=== PATIENT | female | born 1965 | race Caucasian/White ===

== ENCOUNTER → 2016-05-14 08:46 | Outpatient (CLI) | payer MEDICAID ==
[2015-09-12 12:57] VITALS: BMI 41.1
[~2016-05-14 08:46] MED LIST: ADVAIR 250/501 DISK INH; ADVAIR HFA [SP]12 GM INH; CLARITIN 10 MG10 MG PO; CRESTOR10 MG PO; CYCLOBENZAPRINE10 MG PO; CYMBALTA30 MG PO; DIOVAN HCT 80/11 TAB PO; FLORAJEN3 CAPS460 MG PO; HUMALOG 30100 UNITS/ SC; HUMALOG MI100 UNITS/; IPRAT-ALBUT 0.5-3 ML UPD; K-TAB10 MEQ PO; KEFLEX500 MG PO; LANTUS INSULIN10 ML SC; LIORESAL 10 MG10 MG PO; LITHIUM CARBON300 MG PO; LYRICA75 MG PO; NEURONTIN600 MG PO; NEXIUM40 MG PO; NORCO 10/325 TA1 TA1 PO; OMNICEF300 MG PO; PRILOSEC20 MG PO; PROTONIX40 MG PO; PROVENTIL HFA6.7 GM INH; PROVENTIL/2.5 MG/3 M INH; ROBAXIN500 MG PO; TYLENOL #4 W/CO1 TAB PO; VENTOLIN HFA18 GM INH; WELLBUTRIN SR150 MG PO
== END | disposition home or self-care (01) ==
LOC: D.RAD 08:46
DX: R13.10 Dysphagia, unspecified (principal)

== ENCOUNTER 2016-08-30 01:14 | Inpatient (IN) | payer MEDICAID ==
[~2016-08-30] VITALS: Ht 162.6 cm; Wt 116.7 kg
[2016-08-30] VITALS (18 sets, daily range): BP systolic 100–139; BP diastolic 51–78; Ht 162.6 cm; Wt 116.7 kg
--- NOTE | ~2016-08-30 | EC ---
PATIENT:JIMMY ROMANO DATE OF SERVICE: 08/30/16 SEX: F MEDICAL RECORD: [id number] DATE OF : [birth year] LOCATION:[place] [address] AGE OF PATIENT: 51 ADMISSION DATE: 08/30/16 REFERRING PHYSICIAN: INTERPRETING PHYSICIAN: MELISSA CAMERON MD ECHOCARDIOGRAM REPORT ECHO CHARGES 4 ECHO COMPLETE CLINICAL DIAGNOSIS: CHF ECHOCARDIOGRAPHIC MEASUREMENTS (adult normal given) AC root (d.<3.7cm) 3.6 cm LV Septum d (<1.2 cm> 1.6 cm Valve Excursion 1.2 cm LV Septum (systole) 1.9 cm Left Atria (s.<4.0cm> 4.0 cm LVPW d(<1.2cm) 1.4 cm RV (d.<2.3cm) 2.7 cm LVPW (sytole) 1.6 cm LV diastole(<5.6CM) 5.1 cm MV E-F(>70mm/sec) cm LV systole 3.5 cm LVOT Diameter 1.5 cm MV exc.(>10mm) 1.6 cm Est.ejection fraction (50-75%) % Pericardial Effusion N DOPPLER: LVIT cm/sec A 104 cm/sec E 91.0 cm/sec LA cm/sec RVSP 40 mmHg LVOT 121 cm/sec AOP1/2T m/s Asc. Ao 186 cm/sec RVOT 102 cm/sec RA cm/sec PA 153 cm/sec AV Gradient Peak 13.87mmHg AV Mean 7.87 mmHg AV Area 1.5 cm MV Gradient Peak 7.36 mmHg MV Mean 1.85 mmHg MV Area cm COMMENTS: PA IS 9.41 IN [employer] Online Merchandising Manager: Bonnie MILLAN Chinese Medicine Practitioner: Bonnie Hay TAPE# PACS DATE OF SERVICE: 08/30/2016 Echocardiogram FINDINGS: 1. Left ventricular chamber size is within normal limits. Left ventricular systolic function is normal. Overall ejection fraction estimated at 60%. 2. Left atrium is upper limits of normal at 4.0 cm. Right atrium and right ventricular chamber sizes are as well upper limits of normal. 3. Valvular structures have normal structure and motion. ECHOCARDIOGRAM REPORT [id number] JIMMY ROMANO 4. Doppler interrogation reveals mild tricuspid regurgitation. No other valvular insufficiency or stenosis. Pulmonary systolic pressure is slightly elevated estimated at 40 mmHg. 5. No evidence of pericardial effusion or left ventricular thrombus. TRANSINT:[id number] Voice Confirmation ID: [id number] DOCUMENT ID: [id number] MELISSA CAMERON MD CC: [id number] DICTATION DATE: 08/31/16 1056 PROCESSING ENGINEER: 08/31/16 1124 ADM IN [facility] [address] [place] [address]
[2016-08-30 02:27] LABS: BASOPHILS 0.1 % (0-2); EOSINOPHILS 2.3 % (0-7); HEMATOCRIT 36.4 % (36.0-48.0); HEMOGLOBIN 11.7 g/dL (12-16); IMMATURE GRANULOCYTES 0.7 % (0-5); LYMPHOCYTES 19.1 % (15-50); MCH 28.7 pg (26.0-34.0); MCHC 32.1 g/dL (31.0-37.0); MCV 89.4 fL (80.0-100.0); MEAN PLATELET VOLUME 10.3 fL (7.4-10.4); NEUTROPHILS 70.8 % (40-80); PLATELET COUNT 271 10x3/uL (130-400); RBC 4.07 10x6/uL (4.00-5.40); RDW 14.4 % (11.5-14.5); WBC 13.7 10x3/uL (4.8-10.8)
[2016-08-30 02:35] LABS: ALBUMIN 3.4 g/dL (3.4-5.0); ALKALINE PHOSPHATASE 111 U/L (46-116); ALT (SGPT) 20 U/L (10-68); CARBON DIOXIDE 24.2 mmol/L (21.0-32.0); CHLORIDE - SERUM 96 mmol/L (98-107); CREATININE - SERUM 5.7 mg/dL (0.6-1.3); POTASSIUM - SERUM 3.6 mmol/L (3.5-5.1); PROTEIN - SERUM 7.6 g/dL (6.4-8.2); SODIUM 132 mmol/L (136-145); UREA NITROGEN 53 mg/dL (7-18); eGFR NON AFRICAN AMERICAN 8 mL/min (90-120)
[2016-08-30 02:51] LABS: CKMB 13.3 U/L (0.0-3.6)
[2016-08-30 02:53] LABS: CALC OSMOLALITY 276 mosm/kg (275-300); CREATINE KINASE 2283 UL (21-215); GLUCOSE 59 mg/dL (74-106)
[2016-08-30 02:54] LABS: TROPONIN-I 0.243 ng/mL (0.000-0.060)
[2016-08-30 04:05] LABS: COLOR YELLOW (YELLOW)
[2016-08-30 04:06] LABS: APPEARANCE CLOUDY (CLEAR); BACTERIA MANY /hpf (NONE SEEN); BILIRUBIN NEGATIVE (NEGATIVE); EPITHELIAL CELLS 0-5 /hpf (0-5); GLUCOSE NEGATIVE (NEGATIVE); KETONE NEGATIVE (NEGATIVE); LEUKOCYTE ESTERASE 1+ (NEGATIVE); NITRITE NEGATIVE (NEGATIVE); PROTEIN 1+ mg/dL (NEGATIVE); RED CELLS - URINE 0-5 /hpf (0-5); SPECIFIC GRAVITY 1.005 (1.005-1.020); UROBILINOGEN NORMAL (NORMAL)
--- NOTE | 2016-08-30 06:30 | NUR ---
PT ARRIVED TO THE UNIT WITH ER STAFF HOOKED TO THEIR MONITOR. PT MOVED TO ICU BED AND HOOKED TO ICU MONITORS. PT INITIAL VIATLS SIGNS RECORDED. WILL CONTINUE TO MONITOR.
--- NOTE | 2016-08-30 07:00 | NUR ---
PT REPORT REC'D, PT CARE ASSUMED, PT RESTING WITH EYES CLOSED, VSS, 2LNC. LEFT HAND PIV WITH NS INFUSING AT 200 CC/HR, NO REDNESS, WARMTH OR SIGNS OF INFILTRATION. RIGHT HAND PIV S/L'ED, NO REDNESS, WARMTH OR SIGNS OF INFILTRATION. LOPEZ CATHETER FREE OF KINKS TO GRAVITY WITH CLOUDY YELLOW URINE RETURN. NO FAMILY AT THE BEDSIDE, PT UNABLE TO ANSWER QUESTIONS. SHIFT ASSESSMENT COMPLETED, SEE ADMISSION SHIFT ASSESSMENT. ROOM FREE OF CLUTTER, CALL LIGHT IN REACH, BED ALARM ACTIVE, CLOSE TO NURSES STATION, WILL CONTINUE TO MONITOR PT.
[2016-08-30 09:04] LABS: CKMB 18.5 U/L (0.0-3.6)
[2016-08-30 09:26] LABS: CREATINE KINASE 2141 UL (21-215); TROPONIN-I 0.213 ng/mL (0.000-0.060)
--- NOTE | 2016-08-30 09:32 | NUR ---
PTS DAUGHTER, LUIS ENRIQUE ROSS AT THE BEDSIDE, STATES PT "LIVES WITH HER BOYFRIEND, JUSTINE, THEY'VE BEEN TOGETHER FOR 9 YEARS. IT'S JUST MY SISTER AND I, I'M THE OLDEST. IF ANYTHING HAPPENS TO MY MOTHER, I WOULD LIKE EVERYTHING TO BE DONE PLEASE. STATES PT SMOKES APPROX 1PACK A DAY FOR THE LAST 18 YEARS, PT RARELY DRINKS, ONCE IN A BLUE SMITH SHE MAY HAVE DRINK. SHE EXPERIENCED SOME RIGHT SIDED WEAKNESS YESTERDAY AND SAID SHE WASN'T FEELING RIGHT. THE DAY BEFORE YESTERDAY SHE WAS COLD AND CLAMMY, SHE SAID SHE TRIED TO CALL HER DR'S OFFICE SO THAT SHE COULD GET AN APPT SCHEDULED." ASHLEY MATHIS AT THE BEDSIDE, ALL QUESTIONS ANSWERED, VSS, WILL CONTINUE TO MONITOR PT.
--- NOTE | 2016-08-30 09:53 | NUR ---
RETURNED PAGE, INFORMED OF CONSULT FOR CVL PLACEMENT. "OKAY I'LL BE THERE IN A BIT."
--- NOTE | 2016-08-30 10:11 | NUR ---
PAGED DR. ENGLISH PER CONSULT, AWAITING CALL BACK.
--- NOTE | 2016-08-30 10:53 | NUR ---
PT FAMILY AT THE BEDSIDE, ALL QUESTIONS ANSWERED,VSS, WILL CONITNUE TO MONITOR PT.
--- NOTE | 2016-08-30 10:54 | NUR ---
ON THE UNIT, INFORMED OF CONSULT.
--- NOTE | 2016-08-30 11:00 | NUR ---
PT RESTING WITH EYES CLOSED, VSS, REASSESSMENT COMPLETED, SEE FLOW SHEET. ROOM FREE OF CLUTTER, BED LOCKED IN LOWEST POSIITON, BED ALARM ACTIVE, WILL CONTINUE TO MONITOR PT.
--- NOTE | 2016-08-30 11:23 | NUR ---
DR. ENGLISH, DR. ISIDRO AND DR. HA AT THE BEDSIDE SPEAKING WITH PTS BOYFRIEND, JUSTINE.
--- NOTE | 2016-08-30 11:32 | NUR ---
PT REQUESTING THAT WE "GET HIM WHEN THE DOCTORS ARE IN."
[2016-08-30 14:44] LABS: BASOPHILS 0.1 % (0-2); EOSINOPHILS 1.9 % (0-7); HEMATOCRIT 33.7 % (36.0-48.0); IMMATURE GRANULOCYTES 0.6 % (0-5); LYMPHOCYTES 12.4 % (15-50); MCH 29.2 pg (26.0-34.0); MCHC 32.6 g/dL (31.0-37.0); MCV 89.4 fL (80.0-100.0); MEAN PLATELET VOLUME 10.8 fL (7.4-10.4); MONOCYTES 6.8 % (2-11); NEUTROPHILS 78.2 % (40-80); PLATELET COUNT 261 10x3/uL (130-400); RBC 3.77 10x6/uL (4.00-5.40); RDW 14.5 % (11.5-14.5); WBC 14.3 10x3/uL (4.8-10.8)
--- NOTE | 2016-08-30 15:00 | NUR ---
PT RESTING WITH EYES CLOSED, NO C/O PAIN, VSS. PT OPENS EYES TO VOICE, KNOWS WHERE SHE IS AND THE YEAR, DOESN'T REMEMBER WHAT HAPPENED THAT BROUGHT HER IN. REASSESSMENT COMPLETED, SEE FLOW SHEET. ROOM FREE OF CLUTTER, CALL LIGHT IN REACH, BED LOCKED IN LOWEST POSITION, BED ALARM ACTIVE, WILL CONTINUE TO MONITOR PT.
[2016-08-30 15:11] LABS: HEMOGLOBIN A1C 8.5 % (4.8-6.0)
[2016-08-30 15:30] LABS: ALKALINE PHOSPHATASE 113 U/L (46-116); ALT (SGPT) 20 U/L (10-68); BILIRUBIN - DIRECT 0.07 mg/dL (0.00-0.30); BILIRUBIN - INDIRECT 0.16 mg/dL (0.00-1.00); BILIRUBIN - TOTAL 0.23 mg/dL (0.2-1.3); CALCIUM 8.7 mg/dL (8.5-10.1); CHLORIDE - SERUM 99 mmol/L (98-107); CREATININE - SERUM 4.4 mg/dL (0.6-1.3); MAGNESIUM - SERUM 2.5 mg/dL (1.8-2.4); PHOSPHOROUS 6.2 mg/dL (2.5-4.9); PROTEIN - SERUM 6.6 g/dL (6.4-8.2); SODIUM 133 mmol/L (136-145); UREA NITROGEN 48 mg/dL (7-18); eGFR NON AFRICAN AMERICAN 11 mL/min (90-120)
[2016-08-30 15:34] LABS: CALC OSMOLALITY 283 mosm/kg (275-300); GLUCOSE 185 mg/dL (74-106); POTASSIUM - SERUM 4.7 mmol/L (3.5-5.1)
[2016-08-30 15:35] LABS: CREATINE KINASE 1936 UL (21-215)
[2016-08-30 15:37] LABS: TROPONIN-I 0.184 ng/mL (0.000-0.060)
--- NOTE | 2016-08-30 15:55 | NUR ---
AT THE BEDSIDE FOR CVL PLACEMENT.
--- NOTE | 2016-08-30 18:00 | NUR ---
PT FAMILY AT THE BEDSIDE, ALL QUESTIONS ANSWERED, VSS, WILL CONTINUE TO MONITOR PT.
--- NOTE | 2016-08-30 19:00 | NUR ---
REPORT REC'D. ASSUMED PT'S CARE. ASSESSMENT COMPLETED. SEE FLOW SHEETS FOR ALL FINDINGS. PT ON BIPAP, AROUSE WITH VOICES, FOLLOW COMMANDS. ST ON CM WITH HR TO 102, LUNG SOUNDS CRACKLES TO ULB WITH DIMINISHED TO LLB, UNLABORED. O2SAT 96% ON FIO2 AT 35%. LEFT IJ CVL INTACT, CLEAN AND DRY, INFUSING D51/2NS AT 150ML/HR VIA PUMP. LOPEZ INTACT BY GRAVITY WITH YELLOW DRAINAGE TO BAG, PPP. CALL LIGHT IN REACH, BED IN LOW POSITIONED AND LOCKED. HOB UP, SIDE RAILS UP. WILL CONT TO MONITOR,
[2016-08-30 20:47] LABS: CKMB 10.4 U/L (0.0-3.6)
[2016-08-30 20:49] LABS: CREATINE KINASE 1433 UL (21-215)
[2016-08-30 20:50] LABS: TROPONIN-I 0.146 ng/mL (0.000-0.060)
--- NOTE | 2016-08-30 21:00 | NUR ---
PT'S BOYFRIEND AT BEDSIDE VISITING. UPDATED AND QUESTIONS ANSWERED.
--- NOTE | 2016-08-30 23:00 | NUR ---
REASSESSMENT COMPLETED. SEE FLOW SHEETS FOR ALL FINDINGS. CONT PT ON BIPAP, AROUSES EASILY WITH VOICE. NO SIGNS OF DISTRESS NOTED, VSS, NO NEEDS VOICES AT THIS TIME, CALL LIGHT IN REACH. CPOC,
[2016-08-31] VITALS (26 sets, daily range): BP systolic 104–160; BP diastolic 58–83
--- NOTE | 2016-08-31 01:00 | NUR ---
PT RESTING QUIELTY WITHOUT DISTRESS. VSS. NO NEEDS VOICES AT THIS TIME. CALL LIGHT IN REACH. WILL CONT TO MONITOR.
--- NOTE | 2016-08-31 03:00 | NUR ---
REASSESSNENT COMPLETED PER FLOW SHEETS. NO ACUTE CHANGES NOTED ON PT'S CONDITION AT THIS TIME, VSS. CALL LIGHT IN REACH. CPOC,
--- NOTE | 2016-08-31 04:30 | NUR ---
BELONGINGS FORM SIGNED BY PT - AGREES THERE WAS NO MONEY IN WALLET. REFUSES TO SEND TO LOCK UP - IN BELONGS BAG IN ROOM.
[2016-08-31 04:58] LABS: BASOPHILS 0.2 % (0-2); EOSINOPHILS 2.1 % (0-7); HEMATOCRIT 33.8 % (36.0-48.0); HEMOGLOBIN 11.1 g/dL (12-16); IMMATURE GRANULOCYTES 0.5 % (0-5); LYMPHOCYTES 10.6 % (15-50); MCH 29.8 pg (26.0-34.0); MCHC 32.8 g/dL (31.0-37.0); MCV 90.6 fL (80.0-100.0); MEAN PLATELET VOLUME 10.8 fL (7.4-10.4); MONOCYTES 6.7 % (2-11); NEUTROPHILS 79.9 % (40-80); PLATELET COUNT 280 10x3/uL (130-400); RBC 3.73 10x6/uL (4.00-5.40); RDW 14.2 % (11.5-14.5); WBC 13.2 10x3/uL (4.8-10.8)
--- NOTE | 2016-08-31 05:00 | NUR ---
PT RESTING WIOUT DISTRESS. VSS. NO NEEDS VOICES. CPOC.
[2016-08-31 05:48] LABS: ALBUMIN 2.6 g/dL (3.4-5.0); ALKALINE PHOSPHATASE 105 U/L (46-116); ALT (SGPT) 16 U/L (10-68); CALCIUM 9.3 mg/dL (8.5-10.1); CARBON DIOXIDE 23.8 mmol/L (21.0-32.0); CHLORIDE - SERUM 101 mmol/L (98-107); MAGNESIUM - SERUM 2.1 mg/dL (1.8-2.4); POTASSIUM - SERUM 4.7 mmol/L (3.5-5.1); PROTEIN - SERUM 6.7 g/dL (6.4-8.2); SODIUM 133 mmol/L (136-145); UREA NITROGEN 38 mg/dL (7-18)
[2016-08-31 05:49] LABS: CALC OSMOLALITY 284 mosm/kg (275-300); CKMB 7.3 U/L (0.0-3.6); CREATINE KINASE 1196 UL (21-215); CREATININE - SERUM 2.7 mg/dL (0.6-1.3); GLUCOSE 281 mg/dL (74-106); PHOSPHOROUS 4.3 mg/dL (2.5-4.9); TROPONIN-I 0.115 ng/mL (0.000-0.060); eGFR NON AFRICAN AMERICAN 20 mL/min (90-120)
--- NOTE | 2016-08-31 10:15 | NUR ---
Nutrition follow-up: Pt remains NPO Labs reviewed Will need to consider nutrition support if diet unable to advance within 24-[address]N following.
--- NOTE | 2016-08-31 13:47 | NUR ---
ASSISTED PT TO BSC FOR BM. PT SAT UP FOR APPROX 10 MIN AND ASSISTED BACK TO BED . BATH AND LINEN CHANGE DONE.
--- NOTE | 2016-08-31 15:54 | NUR ---
FSBS 451, SS USED, REPORTED TO DR ISIDRO AND REC'D NEW ORDERS.
--- NOTE | 2016-08-31 19:35 | NUR ---
REPORT RECIEVED, INITIAL ASSESSMENT COMPLETE, PLEASE SEE FLOW SHEETS FOR DETAILS. SITTING UP IN BED, A&O X4, RECIEVING RT TREATMENT ATT. FOLLOWS COMMANDS. DENIES PAIN/NEEDS ATT. LUNGS DIMINISHED IN LOWER LOBES. BS ACTIVE X4 QUAD. S1S2 AUSCULTATED. PPP. VSS, BED LOW AND LOCKED, CALL LIGHT IN REACH. ACORDING TO REPORT PT AND GETUP AND WALK WITH LITTLE TO NO ASSISTANCE, LOPEZ IN PLACE AND PT AWARE SHE NEEDS TO USE CALL LIGHT IN GET UP. WILL CPOC.
--- NOTE | 2016-08-31 21:00 | NUR ---
RESTING, FAMILY AT BEDSIDE, DENIES PAIN/NEEDS ATT. BED LOW AND LOCKED, CALL LIGHT IN REACH. WILL CPOC.
--- NOTE | 2016-08-31 21:59 | NUR ---
PAGED DR MARTIN BECAUSE PATIENT HAS PAIN 8/10 IN ARMS AND NO PAIN MEDS ORDERED.
--- NOTE | 2016-08-31 22:12 | NUR ---
SPOKE TO DR MARTIN, HE SAID TO RESTART HER HOME TYLENOL #4 AND LET HER HAVE IT [id number].
--- NOTE | 2016-08-31 22:55 | NUR ---
REASSESSMENT COMPLETE, PLEASE SEE FLOW SHEETS FOR DETAILS. DENIES NEEDS ATT, PAIN PILL GIVEN, WILL RE-EVALUATE. VSS, BED LOW AND LOCKED, CALL LIGHT IN REACH. WILL CPOC.
[2016-09-01] VITALS (12 sets, daily range): BP systolic 141–189; BP diastolic 66–99
--- NOTE | 2016-09-01 01:25 | NUR ---
RESTING, NO S&S OF ACUTE DISTRESS NOTED. BED LOW AND LOCKED, CALL LIGHT IN REACH. VSS, WILL CPOC.
--- NOTE | 2016-09-01 03:00 | NUR ---
REASSESSMENT COMPLETE, PLEASE SEE FLOW SHEETS FOR DETAILS. DENIES PAIN/NEEDS ATT. BED LOW AND LOCKED, CALL LIGHT IN REACH. VSS, WILL CPOC.
--- NOTE | 2016-09-01 05:00 | NUR ---
LOPEZ CARE PROVIDED, DENIES PAIN/NEEDS ATT. BED LOW AND LOCKED, CALL LIGHT IN REACH. WILL CPOC.
[2016-09-01 05:51] LABS: BASOPHILS 0.2 % (0-2); EOSINOPHILS 3.3 % (0-7); HEMATOCRIT 33.4 % (36.0-48.0); HEMOGLOBIN 10.9 g/dL (12-16); IMMATURE GRANULOCYTES 0.3 % (0-5); LYMPHOCYTES 18.2 % (15-50); MCHC 32.6 g/dL (31.0-37.0); MCV 88.8 fL (80.0-100.0); MEAN PLATELET VOLUME 10.6 fL (7.4-10.4); MONOCYTES 6.7 % (2-11); NEUTROPHILS 71.3 % (40-80); PLATELET COUNT 301 10x3/uL (130-400); RBC 3.76 10x6/uL (4.00-5.40); WBC 11.7 10x3/uL (4.8-10.8)
[2016-09-01 06:02] LABS: ANION GAP 13.4 mmol/L (8-16); CALCIUM 9.5 mg/dL (8.5-10.1); CARBON DIOXIDE 23.8 mmol/L (21.0-32.0); POTASSIUM - SERUM 4.2 mmol/L (3.5-5.1)
[2016-09-01 06:03] LABS: CREATININE - SERUM 1.5 mg/dL (0.6-1.3)
--- NOTE | 2016-09-01 07:57 | NUR ---
UP TO BSC WITH ASSISTANCE
--- NOTE | 2016-09-01 11:58 | NUR ---
CALLING REPORT TO FLOOR NURSE
--- NOTE | 2016-09-01 12:00 | NUR ---
WILL ATTEMPT TO CALL REPORT AT A LATER TIME
--- NOTE | 2016-09-01 12:57 | NUR ---
ATTEMPTING TO CALL REPORT TO FLOOR NURSE
--- NOTE | 2016-09-01 13:01 | NUR ---
ROPORT GIVEN TO FLOOR NURSE
--- NOTE | 2016-09-01 13:30 | NUR ---
RECIVED FROM ICU PER BED. TO ROOM 2127.
--- NOTE | 2016-09-01 17:12 | NUR ---
WITHOUT CHANGES OR DISTRESS NOTED AT THIS TIME. DENIES NEEDS.
--- NOTE | 2016-09-01 19:33 | NUR ---
INITIAL ROUNDS COMPLETED. PT AWAKW; DENIES ANY DISCOMFORT. WILL CONTINUE TO MONITOR.
--- NOTE | 2016-09-01 22:58 | NUR ---
PT AWAWK; STATES BACK PAIN EASING. WILL CONTINUE TO MONITOR.
--- NOTE | 2016-09-02 00:49 | NUR ---
PT RESTING WITH EYES CLOSED. RESP EVEN AND REGULAR. BIPAP IN USE. WILL CONTINUE TO MONITOR. SR UP X2, CALL LIGHT WITHIN REACH.
[2016-09-02 02:18] VITALS: BP 164/82
--- NOTE | 2016-09-02 02:40 | NUR ---
PT RESTING WITH EYES CLOSED. RESP EVEN AND REGULAR. SR UP X2,CALL LIGHT WITHIN REACH. BIPAP IN USE.
[2016-09-02 05:00] VITALS: BP 176/73
[2016-09-02 06:18] LABS: BASOPHILS 0.3 % (0-2); EOSINOPHILS 4.1 % (0-7); HEMOGLOBIN 10.7 g/dL (12-16); IMMATURE GRANULOCYTES 0.5 % (0-5); MCH 28.5 pg (26.0-34.0); MCHC 32.4 g/dL (31.0-37.0); MCV 87.8 fL (80.0-100.0); MEAN PLATELET VOLUME 10.7 fL (7.4-10.4); MONOCYTES 8.1 % (2-11); PLATELET COUNT 298 10x3/uL (130-400); RBC 3.76 10x6/uL (4.00-5.40); RDW 13.9 % (11.5-14.5); WBC 11.6 10x3/uL (4.8-10.8)
--- NOTE | 2016-09-02 06:48 | NUR ---
VSS THROUGHOTU NIGHT. SR PER CM. PT STATED TYLENOL #3 HELPED BACK PAIN. AM FSBS 253. 16 U NITS HUMALOG GIVEN SUB-Q TO UPPER L ARM. NEEDS MET;WILL CONTINUE TO MONITOR.
[2016-09-02 07:07] LABS: CALCIUM 8.9 mg/dL (8.5-10.1); CARBON DIOXIDE 25.5 mmol/L (21.0-32.0); CHLORIDE - SERUM 100 mmol/L (98-107); CREATINE KINASE 294 UL (21-215); CREATININE - SERUM 1.3 mg/dL (0.6-1.3); POTASSIUM - SERUM 3.7 mmol/L (3.5-5.1); SODIUM 133 mmol/L (136-145); eGFR NON AFRICAN AMERICAN 46 mL/min (90-120)
[2016-09-02 07:10] LABS: CALC OSMOLALITY 276 mosm/kg (275-300); GLUCOSE 271 mg/dL (74-106); UREA NITROGEN 14 mg/dL (7-18)
[2016-09-02 07:11] LABS: CKMB 2.5 U/L (0.0-3.6)
--- NOTE | 2016-09-02 08:01 | NUR ---
ASSESSMENT DONE. DENIES NEEDS AT THIS TIME.
[2016-09-02 08:16] VITALS: BP 178/88
--- NOTE | 2016-09-02 09:24 | NUR ---
IV PATENT. AT BS. CALL LIGHT IN REACH. WILL CONT. PLAN OF CARE.
[2016-09-02 11:59] VITALS: BP 161/75
[2016-09-02] MEDS ORDERED: COREG12.5 MG PO (15:32)
[2016-09-02] MEDS ORDERED: LEVAQUIN500 MG PO (15:38)
[2016-09-02 16:05] VITALS: BP 139/73
--- NOTE | 2016-09-02 16:58 | NUR ---
DC GIVEN TO PT
--- NOTE | 2016-09-02 17:04 | NUR ---
DC HOME PER PERSONAL CAR
[2016-09-04 15:21] LABS: ALP - ISO (ALP) 107 IU/L (39-117); ALP - ISO (BONE) FRACTION 30 % (14-68); ALP - ISO (LIVER) FRACTION 70 % (18-85); ALP - ISO(INTESTINAL) FRACTION 0 % (0-18)
== END 2016-09-02 17:05 | disposition home or self-care (01) | DRG 177 ==
LOC: D.ER 01:14 → D.ICU 05:04 → D.M2 09-01 13:02
PROVIDERS: Emergency Medicine; Family Medicine; ADMIT Family Medicine
PROC: 02HV33Z Insertion of Infusion Device into Superior Vena Cava, Percutaneous Approach (ICD-10-PCS; principal; 2016-08-30)
PROC: B548ZZA Ultrasonography of Superior Vena Cava, Guidance (ICD-10-PCS; 2016-08-30)
PROC: 0T9B70Z Drainage of Bladder with Drainage Device, Via Natural or Artificial Opening (ICD-10-PCS; 2016-08-30)
PROC: 5A09457 Assistance with Respiratory Ventilation, 24-96 Consecutive Hours, Continuous Positive Airway Pressure (ICD-10-PCS; 2016-08-30)
DX: J69.0 Pneumonitis due to inhalation of food and vomit (principal); J96.02 Acute respiratory failure with hypercapnia; J96.01 Acute respiratory failure with hypoxia; N17.0 Acute kidney failure with tubular necrosis; G93.41 Metabolic encephalopathy; N39.0 Urinary tract infection, site not specified; E87.2 Acidosis; J98.11 Atelectasis; J44.1 Chronic obstructive pulmonary disease with (acute) exacerbation; M62.82 Rhabdomyolysis; B96.89 Other specified bacterial agents as the cause of diseases classified elsewhere; E78.5 Hyperlipidemia, unspecified; E11.649 Type 2 diabetes mellitus with hypoglycemia without coma; E11.40 Type 2 diabetes mellitus with diabetic neuropathy, unspecified; E11.22 Type 2 diabetes mellitus with diabetic chronic kidney disease; I12.9 Hypertensive chronic kidney disease with stage 1 through stage 4 chronic kidney disease, or unspecified chronic kidney disease; N18.9 Chronic kidney disease, unspecified; Z79.4 Long term (current) use of insulin; G47.33 Obstructive sleep apnea (adult) (pediatric); I95.9 Hypotension, unspecified; K21.9 Gastro-esophageal reflux disease without esophagitis; F31.9 Bipolar disorder, unspecified; F60.9 Personality disorder, unspecified; F41.9 Anxiety disorder, unspecified; Z72.0 Tobacco use

== ENCOUNTER → 2016-11-23 10:17 | Outpatient (CLI) | payer MEDICAID ==
[2016-08-30 10:30] VITALS: BMI 43.1
[~2016-11-23 10:17] MED LIST changes: +COREG12.5 MG PO; +LEVAQUIN500 MG PO
== END | disposition home or self-care (01) ==
LOC: D.US 10:17
DX: I12.9 Hypertensive chronic kidney disease with stage 1 through stage 4 chronic kidney disease, or unspecified chronic kidney disease (principal); E11.22 Type 2 diabetes mellitus with diabetic chronic kidney disease; Z68.41 Body mass index [BMI] 40.0-44.9, adult

== ENCOUNTER 2017-05-23 15:48 | Inpatient (IN) | payer MEDICAID ==
[~2017-05-23] VITALS: Ht 162.6 cm; Wt 106.0 kg
--- NOTE | ~2017-05-23 | HEMODYNAMI ---
PATIENT:JIMMY ROMANO MEDICAL RECORD: [id number] : 65 LOCATION:[facility] D.2302 ADMISSION DATE: 05/23/17 Generatedon:05/27/201712:17 Patient name: JIMMY ROMANO Patient #: [id number] SSN: : 1965 Date of study: 05/27/2017 Page: Of Hemodynamic Procedure Report Patient Data Patient Demographics Procedure consent was obtained First Name: JIMMY Gender: Female Last Name: ROMANO : 1965 [facility] Initial: KAYCEE Age: 52 year(s) Patient #: [id number] Race: Unknown Additional ID: [id number] Contact details Address: [address] [place] [address] [address] State: [place] City: [place] Zip code: [address] Past Medical History Allergies Allergen Reaction Date Comments Reported Other allergy 05/27/2017 Admission Admission Data Admission Date: 05/23/2017 Admission Time: 17:55 Room #: 2302 Height (in.): 64 BSA: 2.06 (m2) Height (cm.): 162.56 BMI: 38.6 (kg/m2) Weight (lbs.): 224.87 Weight (kg.): 102 Procedure Procedure Types Cath Procedure Diagnostic Procedure LHC LH w/Coronaries PCI Procedure Coronary Stent Coronary Stent Initial Procedure Description Procedure Date Procedure Date: 05/27/2017 Procedure Start Time: 11:59 Procedure End Time: 12:12 Procedure Staff Name Function Jan Kendrick MD Performing Physician Jenni Witt RT Monitor Autumn Hobbs RT Scrub Shama Garrett RN Nurse Procedure Data Cath Procedure Fluoroscopy Diagnostic fluoroscopy Total fluoroscopy Time: 2.6 time: 2.6 min min Diagnostic fluoroscopy Total fluoroscopy dose: 2.6 dose: 2.6 mGy mGy Contrast Material Contrast Material Type Amount (ml) Isovue 300 76 Entry Location Entry Primary Successful Side Size Upsize Upsize Entry Closure Succes sful Closure Location (Fr) 1 (Fr) 2 (Fr) Remarks Device Remarks Femoral Right 5 Fr 6 Fr Exoseal artery Short Estimated blood loss: 10 ml Diagnostic catheters Device Type Used For End Catheter Placement MULTIPACK Pigtail 5 Fr Procedure catheter MULTIPACK JL 4.0 5Fr Procedure catheter MULTIPACK 3DRC 5Fr Procedure catheter Procedure Complications No complications Procedure Medications Medication Administration Route Dosage Oxygen NC 2 l/min Lidocaine 2% added to field 20 Heparin Flush Bag added to field 2 bags (1000units/500ml NS) 0.9% NaCl I.V. 100 ml/hr Versed I.V. 2 mg Fentanyl I.V. 50 mcg Heparin Bolus I.V. 4000 units Integrilin (Bolus I.V. 9 ml 2mg/ml) Versed I.V. 1 mg Fentanyl I.V. 50 mcg Plavix P.O. 75 mg Hemodynamics Rest BSA: 2.06 (m2) O2 Consumption: Estimated: 211.82 (ml/min) O2 Consumption indexed : Estimated:102.83 (ml/min/m) Heart Rate: 85 (bpm) Snapshots Pre Cath Intra NCS Post Cath Vital Signs Time Heart Resp SPO2 etCO2 NIBP (mmHg) Rhythm Pain Sedation Rate (ipm) (%) (mmHg) Status Level (bpm) 11:50:15 82 19 96 0 188/107(145) NSR 0 (11) 10(A) , No pain 11:54:50 83 15 95 34.7 183/110(146) NSR 0 (11) 10(A) , No pain 11:59:24 78 14 97 30.2 169/99(131) NSR 0 (11) 10(A) , No pain 12:03:53 82 12 96 37.7 180/101(131) NSR 0 (11) 9(A) , No pain 12:08:19 82 14 96 35.4 154/95(126) NSR 0 (11) 9(A) , No pain 12:12:43 82 14 97 35.4 169/94(144) NSR 0 (11) 10(A) , No pain Medications Time Medication Route Dose Verified Delivered Reason Notes Effectiveness by by 11:53:57 Oxygen NC 2 Jan Sesay used for l/min Mireille Garrett backend tester 11:54:03 Lidocaine 2% added 20ml Jan Montoya for local to vial Mireille Kendrick MD anesthetic field 11:54:09 Heparin Flush added 2 Jan Montoya used for Bag to bags Mireille Kendrick MD procedure (1000units/500ml field NS) 11:54:17 0.9% NaCl I.V. 100 Jan Buffie Per physician ml/hr Mireille Garrett RN 12:00:09 Versed I.V. 2 mg Jan Buffie for sedation Mireille Garrett RN 12:00:14 Fentanyl I.V. 50 Jan Buffie for sedation mcg Mireille Garrett RN 12:03:06 Heparin Bolus I.V. 4000 Jan Buffie for verifi ed units Mireille Garrett RN anticoagulation with dr kendrick 12:05:10 Integrilin I.V. 9 ml Jan Buffie for wasted 1 (Bolus 2mg/ml) Mireille Garrett RN antiplatelet ml of therapy vial 12:06:48 Versed I.V. 1 mg Jan Buffie for sedation Mirelile Garrett RN 12:06:56 Fentanyl I.V. 50 Jan Buffie for sedation mcg Mireille Garrett RN 12:11:25 Plavix P.O. 75 mg Jan Buffie for Mireille Garrett RN antiplatelet therapy Procedure Log Time Note 10:58:01 Patient Height : 64 inches 10:58:10 Patient Weight : 224.87 lbs 11:29:41 Time tracking: Regular hours (M-F 7:00 - 5:00) 11:29:45 Plan of Care:Hemodynamics will remain stable., Cardiac rhythm will remain stable., Comfort level will be maintained., Respiratory function will remain adequate., Patient/ family verbilizes understanding of procedure., Procedure tolerated without complication., Recovers from procedure without complications.. 11:32:51 Autumn Hobbs RT(R) sent for patient. Start room use. 11:33:19 Patient received from ICU to CCL 2 Alert and oriented. Tansferred to table in Supine position. 11:48:47 Warm blankets applied, and jose de jesus hugger turned on for patient comfort. 11:48:48 Correct patient and procedure confirmed by team. 11:48:49 Signed procedure consent form obtained from patient. 11:48:50 ECG and BP/O2 sat monitors applied to patient. 11:48:51 Vital chart was started 11:52:54 Baseline sample Acquired. 11:53:03 Rhythm: sinus rhythm 11:53:05 Full Disclosure recording started 11:53:21 H&P Date Dictated: 05/24/2017 Within 30 days and on chart., H&P Addendum completed by physician on day of procedure. (MUST COMPLETE FOR ALL OUTPATIENTS). 11:53:28 Family in waiting room. 11:53:30 Patient NPO since Midnight. 11:53:39 Patient allergic to Other allergy 11:53:41 Is the patient allergic to Iodine/contrast media? No. 11:53:45 Is patient on blood thinner?Yes 11:53:48 ACC The patient was administered the following blood thiners within the last 24 hours: ACCPlavix 11:53:50 Patient diabetic? Yes. 11:53:51 If diabetic: On Metformin? No 11:53:56 Snore? Yes 11:53:57 Oxygen 2 l/min NC was administered by Shama Garrett RN; used for procedure; 11:53:57 Sleep apnea? No 11:54:03 Lidocaine 2% 20ml vial added to field was administered by Jan Kendrick MD; for local anesthetic; 11:54:03 Airway obstruction? Yes COPD 11:54:09 Heparin Flush Bag (1000units/500ml NS) 2 bags added to field was administered by Jan Kendrick MD; used for procedure; 11:54:14 Patient pain scale 0/10 ?. 11:54:17 0.9% NaCl 100 ml/hr I.V. was administered by Shama Garrett RN; Per physician; 11:54:39 IV patent on arrival in right hand with 0.9% NaCl at [facility]. 11:54:45 Lab results completed and on chart. 11:54:49 Right groin area was prepped with chlora-prep and draped in sterile fashion 11:54:51 Alarms reviewed by R. N. 11:54:51 Sharps counted by scrub and verified by R.N. 11:54:52 Physician paged 11:55:07 Use device set Femoral Dx 11:55:36 SHEATH 5Fr Prelude ([id number]) opened to sterile field. 11:55:37 ACIST Syringe (16866) opened to sterile field. 11:55:38 Bag Decanter (2002S) opened to sterile field. 11:55:39 Medline Cath Pack ([id number]) opened to sterile field. 11:55:41 DIAGNOSTIC WIRE .035 260cm J wire (938939) opened to sterile field. 11:55:43 ACIST Hand Control (28420) opened to sterile field. 11:55:44 ACIST Manifold (20419) opened to sterile field. 11:55:45 DIAGNOSTIC Multipack 5Fr catheter set (PQ1547) opened to sterile field. 11:55:46 Tegaderm 4 x 4 (1626W) opened to sterile field. 11:55:48 PERCUTANEOUS ENTRY 19GA needle opened to sterile field. 11:58:17 --------ALL STOP TIME OUT------ 11:58:18 Final Timeout: patient, procedure, and site verified with staff and physician. All members of the team are in agreement. 11:58:19 Right groin site verified by team. 11:58:23 Physical assessment completed. ASA score P 2 - A patient with mild systemic disease as per Jan Kendrick MD. 11:58:29 Sedation plan: IV Moderate Sedation Medication:Versed, Fentanyl 11:59:17 Physician arrived 11:59:23 Zero performed for pressure channel P1 11:59:30 Zero performed for pressure channel P1 11:59:41 Local anesthetic to right femoral artery with Lidocaine 2% by Jan Kendrick MD.INITIAL ACCESS ONLY 11:59:57 A 5 Fr sheath was inserted into the Right Femoral artery 12:00:09 Versed 2 mg I.V. was administered by Shama Garrett RN; for sedation; 12:00:14 Fentanyl 50 mcg I.V. was administered by Shama Garrett RN; for sedation; 12:00:51 A MULTIPACK Pigtail 5 Fr catheter was advanced over the wire and used for Procedure. 12:01:02 EF : 60 % 12:01:03 Catheter removed. 12:01:31 A MULTIPACK JL 4.0 5Fr catheter was advanced over the wire and used for Procedure. 12:01:37 LCA angiography performed. 12:01:56 Catheter removed. 12:03:06 Heparin Bolus 4000 units I.V. was administered by Shama Garrett RN; for anticoagulation; verified with dr kendrick 12:03:54 A MULTIPACK 3DRC 5Fr catheter was advanced over the wire and used for Procedure. 12:03:57 RCA angiography performed. 12:03:59 Catheter removed. 12:04:47 Proceeding to intervention. 12:04:55 Sheath upsized to a 6 Fr Short. 12:05:10 Integrilin (Bolus 2mg/ml) 9 ml I.V. was administered by Shama Garrett RN; for antiplatelet therapy; wasted 1 ml of vial 12:05:16 GUIDE 6FR AR 2.0 catheter ([id number]) opened to sterile field. 12:05:17 CHOICE PT Extra Support 182cm wire ([id number]) opened to sterile field. 12:05:18 INFLATOR Merit BasixCompak (YV2957) opened to sterile field. 12:05:19 SHEATH 6Fr Prelude ([id number]) opened to sterile field. 12:05:35 6 Fr AR2 guide catheter was inserted over the wire 12:06:48 Versed 1 mg I.V. was administered by Shama Garrett RN; for sedation; 12:06:56 Fentanyl 50 mcg I.V. was administered by Shama Garrett RN; for sedation; 12:06:56 choice PT ex wire advanced. 12:07:41 Place stent Inflation Number: 1 A ALVA RX 2.5 x 12 stent ([id number]) was prepped and advanced across the Dist RCA. The stent was deployed at 13 HOA for 0:08 (min:sec). 12:08:03 Inflation number: 2 The stent balloon was then re-inflated across the Dist RCA to 21 HOA for 0:09 (min:sec). 12:09:45 Wire removed. 12:09:46 Guide catheter removed. 12:09:56 EXOSEAL 6Fr (EX600) opened to sterile field. 12:10:22 Sheath removed intact; hemostasis achieved with Exoseal to the Right Femoral artery. 12:10:27 Procedure ended.(Physican Out) 12:10:41 Fluoroscopy time 02.60 minutes. 12:10:50 Fluoroscopy dose: 2.6 mGy 12:10:50 Flurop Dose total: 2.6 12:11:07 Contrast amount:Isovue 300 76ml. 12:11:09 Sharps counted by scrub and verified by R.N. 12:11:11 Insertion/operative site no bleeding no hematoma. 12:11:16 Post right femoral artery:stable 12:11:24 Post Procedure Pulses reassessed and unchanged 12:11:25 Plavix 75 mg P.O. was administered by Shama Garrett RN; for antiplatelet therapy; 12:11:27 Post-procedure physical assessment completed. ASA score P 2 - A patient with mild systemic disease as per Jan Kendrick MD. 12:11:29 Post procedure rhythm: unchanged. 12:11:32 Estimated blood loss: 10 ml 12:11:35 Post procedure instruction explained to patient.Patient verbalizes understanding. 12:11:59 Procedure type changed to Cath procedure, Diagnostic procedure, LHC, LHC w/Coronaries, PCI procedure, Coronary Stent, Coronary Stent Initial 12:12:08 Procedure and supply charges have been captured, reviewed, submitted and are correct. 12:12:37 Procedure Complication : No complications 12:12:41 Vital chart was stopped 12:12:44 See physician's report for complete and final results. 12:12:49 Report given to ICU. 12:12:51 Procedure ended. 12:12:51 Full Disclosure recording stopped 12:12:54 End room use (Document Last) Intervention Summary Intervention Notes Time ActionType Lesion and Equipment Used Action# Pressure Duration Attributes 12:07:41 Place stent Dist RCA ALVA RX 2.5 x 1 13 00:08 12 stent ([id number]) 12:08:03 Reinflate Dist RCA ALVA RX 2.5 x 2 21 00:09 stent 12 stent balloon ([id number]) Device Usage Item Name Manufacture Quantity Catalog Number Hospital Part Current M inimal Lot# / Charge Number Stock Stock Serial# Code SHEATH 5Fr Merit 1 [id number] 112628 [id number] 570692 5 Prelude Medical ([id number]) ACIST Syringe Acist 1 07930 480046 747118 126431 2 0 (00673) Medical Systems Inc Bag Decanter Microtek 1 2001S 393812 10889 371099 5 (2001S) Medical Inc. Medline Cath Cardinal 1 [id number] 580017 54335 330292 5 Merged With [facility] Magenta Medical ([id number]) DIAGNOSTIC St Ruben 1 388580 490364 187811 973966 3 0 WIRE .035 260cm J wire (402116) ACIST Hand Acist 1 51817 137853 219058 035805 5 Control Medical (44193) Systems Inc ACIST Manifold Acist 1 44777 748237 875463 348420 5 (51050) Medical Systems Inc DIAGNOSTIC Cardinal 1 [id number] 985635 51180 820629 3 0 Multipack 5Fr Health catheter set ([id number]) Tegaderm 4 x 4 3M 1 1626W 002096 558156 436287 5 (1626W) PERCUTANEOUS Cook Medical 1 Q67056 541108 980241 5 ENTRY 19GA needle MULTIPACK Cardinal 1 259956 5 Pigtail 5 Fr Health catheter MULTIPACK JL Cardinal 1 412362 5 4.0 5Fr Health catheter MULTIPACK 3DRC Cardinal 1 851193 5 5Fr catheter Health GUIDE 6FR AR Medtronic 1 [id number] 930366 91211 841136 1 2.0 catheter ([id number]) CHOICE PT [place] 1 [id number] 339674 705514 307947 5 Extra Support Scientific 182cm wire ([id number]) INFLATOR Merit Merit 1 ZK0110 175054 951432 646933 1 5 Corimmun Medical (DP9954) SHEATH 6Fr Merit 1 [id number] 754974 920713 883240 5 Prelude Medical ([id number]) ALVA RX 2.5 x Medtronic 1 [id number] 014932 4662954 416020 5 [id number] 12 stent ([id number]) EXOSEAL 6Fr Cardinal 1 EX600 853622 240525 493845 1 0 (EX600) Health Signature Audit [place] Stage Time Signature Unsigned Intra-Procedure 05/27/2017 Jenni Witt 12:17:49 PM RT(R) Signatures Monitor : Jenni Witt Signature : RT Date : Time : [facility] [address] [place] [address]
--- NOTE | ~2017-05-23 | OP ---
PATIENT NAME: JIMMY ROMANO MEDICAL RECORD: [id number] :65 LOCATION:D.M2 D.2126 ADMISSION DATE:05/23/17 SURGEON: MELISSA CAMERON MD DATE OF OPERATION: 05/28/2017 PROCEDURES: 1. PTCA stent LAD. 2. PTCA stent left circumflex. 3. Selective coronary angiography. DESCRIPTION OF PROCEDURE: After informed consent was obtained and after detailed explanation of the risks and benefits as well as alternative therapies, the patient elected to proceed with angiogram and angioplasty. The left femoral area was prepped and draped in normal sterile fashion. Left femoral artery was cannulated via modified Seldinger technique with placement of 6-Italian sheath. All catheters exchanged through this sheath. FINDINGS: The left anterior descending and left circumflex were both 90% stenosed. LAD was addressed with 3.0 x 15 and circumflex with a 2.75 x 26, both Edwardo stents. Result was 0% residual stenosis. OVERALL IMPRESSION: Successful percutaneous transluminal coronary angioplasty stent of the left anterior descending and left circumflex, both going from 90% initial stenosis to 0% residual. TRANSINT:[id number] Voice Confirmation ID: [id number] DOCUMENT ID: [id number] MLEISSA CAMERON MD at 0956 CC: [id number] DICTATION DATE: 05/28/17 1056 CORPORATE EVENT PLANNER: 05/28/17 1403 DIS IN 05/29/17 [address] [address] [place] [address]
--- NOTE | ~2017-05-23 | HEMODYNAMI ---
PATIENT:JIMMY ROMANO MEDICAL RECORD: [id number] : 65 LOCATION:[facility] D.2126 ADMISSION DATE: 05/23/17 Generatedon:05/28/201710:56 Patient name: JIMMY ROMANO Patient #: [id number] SSN: : 1965 Date of study: 05/28/2017 Page: Of Hemodynamic Procedure Report Patient Data Patient Demographics Procedure consent was obtained First Name: JIMMY Gender: Female Last Name: ROMANO : 1965 [facility] Initial: KAYCEE Age: 52 year(s) Patient #: [id number] Race: Unknown Additional ID: [id number] Contact details Address: [address] [place] [address] [address] State: [place] City: [place] Zip code: [address] Past Medical History Allergies Allergen Reaction Date Comments Reported Other allergy 05/27/2017 Other allergy 05/28/2017 METFORMIN, SULFA, METOPROLOL Admission Admission Data Admission Date: 05/23/2017 Admission Time: 17:55 Room #: D.2126 Height (in.): 64 BSA: 2.06 (m2) Height (cm.): 162.56 BMI: 38.6 (kg/m2) Weight (lbs.): 224.87 Weight (kg.): 102 Lab Results Lab Result Date: 05/28/2017 Lab Result Time: 0:00 Biochemistry Name Units Result Min Max BUN mg/dl 15 --(--*-)-- 7 18 Creatinine mg/dl 1.2 --(---*)-- 0.6 1.3 CBC Name Units Result Min Max Hemoglobin g/dl 11.8 *-(----)-- 13.5 17.5 Procedure Procedure Types Cath Procedure Diagnostic Procedure Sedation Charges Moderate Sedation up to 15 minutes PCI Procedure Coronary Stent Coronary Stent Initial x2 Procedure Description Procedure Date Procedure Date: 05/28/2017 Procedure Start Time: 10:39 Procedure End Time: 10:55 Procedure Staff Name Function Jan Kendrick MD Performing Physician Elsa Esquivel RT Monitor Scout Willoughby RN Nurse Elodia Brown RT Scrub Procedure Data Cath Procedure Fluoroscopy Diagnostic fluoroscopy Total fluoroscopy Time: 4.4 time: 4.4 min min Diagnostic fluoroscopy Total fluoroscopy dose: 527 dose: 527 mGy mGy Contrast Material Contrast Material Type Amount (ml) Isovue 300 124 Entry Location Entry Primary Successful Side Size Upsize Upsize Entry Closure Succes sful Closure Location (Fr) 1 (Fr) 2 (Fr) Remarks Device Remarks Femoral Left 6 Fr Exoseal artery Short Estimated blood loss: 10 ml Procedure Complications No complications Procedure Medications Medication Administration Route Dosage 0.9% NaCl I.V. 100 ml/hr Oxygen etCO2 Nasal cannula 2 l/min Heparin Flush Bag added to field 2 bags (1000units/500ml NS) Lidocaine 2% added to field 20 Benadryl I.V. 50 mg Versed I.V. 2 mg Fentanyl I.V. Heparin Bolus I.V. 4000 units Hemodynamics Rest BSA: 2.06 (m2) HGB: 11.8 (g/dl) O2 Consumption: Estimated: 208.9 (ml/min) O2 Con sumption indexed: Estimated:101.41 (ml/min/m) Heart Rate: 81 (bpm) Snapshots Pre Cath Intra NCS Post Cath Vital Signs Time Heart Resp SPO2 etCO2 NIBP (mmHg) Rhythm Pain Sedation Rate (ipm) (%) (mmHg) Status Level (bpm) 10:29:37 80 15 99 173/93(147) NSR 0 (11) 10(A) , No pain 10:34:38 82 16 98 29.9 170/93(142) NSR 0 (11) 10(A) , No pain 10:39:37 82 18 98 30.6 159/97(132) NSR 0 (11) 10(A) , No pain 10:44:36 78 13 98 30.6 152/81(123) NSR 0 (11) 10(A) , No pain 10:49:31 80 14 99 29.9 152/82(117) NSR 0 (11) 10(A) , No pain 10:54:24 82 15 99 29.9 159/92(127) NSR 0 (11) 10(A) , No pain Medications Time Medication Route Dose Verified Delivered Reason Notes Effectiveness by by 10:35:34 0.9% NaCl I.V. 100 Scout Scout Per physician ml/hr Fartun Willoughby RN RN 10:35:42 Oxygen etCO2 2 Scout Scout Per physician Nasal l/min Fartun Willoughby cannula RN RN 10:35:53 Heparin Flush added 2 Scout Scout used for Bag to bags Fartun Willoughby procedure (1000units/500ml field RN RN NS) 10:36:04 Lidocaine 2% added 20ml Scout Scout for local to vial Fartun Willoughby anesthetic field RN RN 10:36:14 Benadryl I.V. 50 mg Scout Scout Per physician Fartun Willoughby RN RN 10:36:25 Versed I.V. 2 mg Scout Scout for sedation Fartun Willoughby RN RN 10:36:33 Fentanyl I.V. Scout Scout for sedation Fartun Willoughby RN RN 10:43:11 Heparin Bolus I.V. 4000 Scout Scout for units Fartun Willoughby anticoagulation RN wafer fabrication technician Log Time Note 10:06:13 Patient Height : 64 inches 10:06:13 Patient Weight : 224.87 lbs 10:10:14 Time tracking: Regular hours (M-F 7:00 - 5:00) 10:10:19 Plan of Care:Hemodynamics will remain stable., Cardiac rhythm will remain stable., Comfort level will be maintained., Respiratory function will remain adequate., Patient/ family verbilizes understanding of procedure., Procedure tolerated without complication., Recovers from procedure without complications.. 10:10:21 Signed procedure consent form obtained from patient. 10:11:05 Lab Result : Creatinine 1.2 mg/dl 10:11:05 Lab Result : BUN 15 mg/dl 10:11:05 Lab Result : Hemoglobin 11.8 g/dl 10:11:16 Elsa Esquivel RT(R) sent for patient. Start room use. 10:21:00 Patient received from Med II to CCL 1 Alert and oriented. Tansferred to table in Supine position. 10:21:02 Warm blankets applied, and jose de jesus hugger turned on for patient comfort. 10:21:02 Correct patient and procedure confirmed by team. 10:21:03 ECG and BP/O2 sat monitors applied to patient. 10:28:25 Vital chart was started 10::25 Full Disclosure recording started 10:29:18 Baseline sample Acquired. ::25 Rhythm: sinus rhythm 10::29 Pre-procedure instructions explained to patient. 10::29 Pre-op teaching completed and patient verbalized understanding. 10::31 Family in patients room. 10::33 Patient NPO since Midnight. 10:29:56 Patient allergic to Other allergyMETFORMIN, SULFA, METOPROLOL 10:30:01 Is the patient allergic to Iodine/contrast media? No. 10:30:02 Is patient on blood thinner?Yes 10:30:05 ACC The patient was administered the following blood thiners within the last 24 hours: ACCPlavix 10:30:07 Patient diabetic? Yes. 10:30:08 If diabetic: On Metformin? No 10:30:16 Previous problem with sedation/anesthesia? No ? 10:30:17 Snore? Yes 10:30:18 Sleep apnea? Yes 10:30:19 Deviated septum? No 10:30:20 Opens mouth fully? Yes 10:30:24 Sticks out tongue? Yes 10:30:27 Airway obstruction? Yes COPD 10:30:30 Dentures? No ? 10:30:33 Pre procedure: left dorsailis pedis pulse 2+ Normal; easily identifiable; not easily obliterated 10:30:36 Patient pain scale 0/10 ?. 10:30:42 IV patent on arrival in left hand with 0.9% NaCl at KVO. 10:34:02 Lab results completed and on chart. 10:34:07 Left groin area was prepped with chlora-prep and draped in sterile fashion 10:34:08 Alarms reviewed by R. N. 10:34:09 Sharps counted by scrub and verified by R.N. 10:34:10 --------ALL STOP TIME OUT------ 10:34:11 Final Timeout: patient, procedure, and site verified with staff and physician. All members of the team are in agreement. 10:34:12 Left groin site verified by team. 10:34:16 Physical assessment completed. ASA score P 2 - A patient with mild systemic disease as per Jan Kendrick MD. 10:34:19 Sedation plan: IV Moderate Sedation Medication:Versed, Fentanyl 10:34:33 Use device set CATH PACK 10:34:35 ACIST Syringe (50256) opened to sterile field. 10:34:35 ACIST Hand Control (62607) opened to sterile field. 10:34:36 ACIST Manifold (33602) opened to sterile field. 10:34:36 Medline Cath Pack ([id number]) opened to sterile field. 10:34:37 Bag Decanter (2002S) opened to sterile field. 10:34:37 DIAGNOSTIC WIRE .035 260cm J wire (758453) opened to sterile field. 10:34:45 SHEATH 6FR [place] (MLJ479) opened to sterile field. 10:34:46 INFLATOR Merit BasixCompak (EJ0852) opened to sterile field. 10:35:34 0.9% NaCl 100 ml/hr I.V. was administered by Scout Willoughby RN; Per physician; 10:35:42 Oxygen 2 l/min etCO2 Nasal cannula was administered by Scout Willoughby RN; Per physician; 10:35:53 Heparin Flush Bag (1000units/500ml NS) 2 bags added to field was administered by Scout Willoughby RN; used for procedure; 10:36:04 Lidocaine 2% 20ml vial added to field was administered by Scout Willoughby RN; for local anesthetic; 10:36:14 Benadryl 50 mg I.V. was administered by Scout Willoughby RN; Per physician; 10:36:25 Versed 2 mg I.V. was administered by Scout Willoughby RN; for sedation; 10:36:33 Fentanyl I.V. was administered by Scout Willoughby RN; for sedation; 10:39:24 Zero performed for pressure channel P1 10:39:32 Procedure started. 10:39:37 Local anesthetic to left femerol artery with Lidocaine 2% by Jan Kendrick MD.INITIAL ACCESS ONLY 10:39:43 GUIDE 6FR XBLAD 3.5 catheter ([id number]) opened to sterile field. 10:40:23 A 6 Fr Short sheath was inserted into the Left Femoral artery 10:40:47 6 Fr XBLAD 3.5 guide catheter was inserted over the wire 10:42:12 CHOICE PT Extra Support 182cm wire ([id number]) opened to sterile field. 10:42:30 CHOICE ES 182 wire advanced. 10:42:34 Wire advanced across lesion. 10:43:11 Heparin Bolus 4000 units I.V. was administered by Scout Willoughby RN; for anticoagulation; 10:43:40 Place stent Inflation Number: 1 A ALVA RX 2.75 x 26 stent ([id number]) was prepped and advanced across the Mid CX. The stent was deployed at 15 HOA for 0:10 (min:sec). 10:43:53 Stent catheter was removed intact over wire. 10:45:31 Wire redirected to LAD. 10:45:52 Wire advanced across lesion. 10:48:44 Place stent Inflation Number: 1 A ALVA RX 3.0 x 15 stent ([id number]) was prepped and advanced across the Prox LAD. The stent was deployed at 11 HOA for 0:10 (min:sec). 10:49:55 Stent catheter was removed intact over wire. 10:49:55 Balloon removed over the wire. 10:49:56 Guide catheter removed. 10:50:02 EXOSEAL 6Fr (EX600) opened to sterile field. 10:50:41 Procedure type changed to Cath procedure, Diagnostic procedure, Sedation Charges, Moderate Sedation up to 15 minutes, PCI procedure, Coronary Stent, Coronary Stent Initial x2 10:50:50 Sheath removed intact; hemostasis achieved with Exoseal to the Left Femoral artery. 10:50:52 Procedure ended.(Physican Out) 10:52:15 Fluoroscopy time 04.40 minutes. 10:52:19 Flurop Dose total: 527 10:52:19 Fluoroscopy dose: 527 mGy 10:52:23 Contrast amount:Isovue 300 124ml. 10:52:24 Sharps counted by scrub and verified by R.N. 10:52:31 Post left femerol artery:stable, soft, clean and dry 10:52:35 Post procedure: left dorsailis pedis pulse 2+ Normal; easily identifiable; not easily obliterated. 10:52:39 Post-procedure physical assessment completed. ASA score P 2 - A patient with mild systemic disease as per Jan Kendrick MD. 10:52:42 Post procedure rhythm: unchanged. 10:52:44 Estimated blood loss: 10 ml 10:52:45 Post procedure instruction explained to patient.Patient verbalizes understanding. 10:52:45 Patient needs reinforcement of post procedure teaching. 10:55:32 Procedure and supply charges have been captured, reviewed, submitted and are correct. 10:55:34 Procedure Complication : No complications 10:55:36 Vital chart was stopped 10:55:37 See physician's report for complete and final results. 10:55:38 Report given to PCU. 10:55:41 Patient transfered to PCU with Bed. 10:55:42 Procedure ended. 10:55:42 Full Disclosure recording stopped 10:55:45 End room use (Document Last) Intervention Summary Intervention Notes Time ActionType Lesion and Equipment Used Action# Pressure Duration Attributes 10:43:40 Place stent Mid CX ALVA RX 2.75 x 1 15 00:10 26 stent ([id number]) 10:48:44 Place stent Prox LAD ALVA RX 3.0 x 1 11 00:10 15 stent ([id number]) Device Usage Item Name Manufacture Quantity Catalog Number Hospital Part Current M inimal Lot# / Charge Number Stock Stock Serial# Code ACIST Syringe Acist 1 69270 134047 752557 620207 2 0 (18929) Medical Systems Inc ACIST Hand Acist 1 08264 229163 178796 821627 5 Control Medical (58189) Systems Inc ACIST Manifold Acist 1 57828 522359 457621 321876 5 (55399) Medical Systems Inc Medline Cath Cardinal 1 [id number] 527699 94994 832762 5 Pack Health ([id number]) Bag Decanter Microtek 1 2001S 907217 27873 038883 5 (2001S) Medical Inc. DIAGNOSTIC St Ruben 1 603791 969322 365213 602047 3 0 WIRE .035 260cm J wire (821250) SHEATH 6FR Terumo 1 BET160 376514 281139 547713 4 0 [place] (TYW972) INFLATOR Merit Merit 1 TI6996 760101 207625 296044 1 5 avolution Medical (SD1105) GUIDE 6FR Cardinal 1 [id number] 999616 806058 635179 1 0 XBLAD 3.5 Health catheter ([id number]) CHOICE PT [place] 1 [id number] 098393 177980 432003 5 Extra Support Scientific 182cm wire ([id number]) ALVA RX 2.75 x Medtronic 1 [id number] 855556 3006804 535063 5 26 stent ([id number]) ALVA RX 3.0 x Medtronic 1 [id number] 329790 0492768 343461 5 [id number] 15 stent ([id number]) EXOSEAL 6Fr Cardinal 1 EX600 480087 219707 196459 1 0 (EX600) Health Signature Audit Ramer Stage Time Signature Unsigned Intra-Procedure 05/28/2017 Elsa Esquivel 10:56:16 AM RT(R) Signatures Monitor : Elsa Esquivel Signature : RT Date : Time : [id number] [place] [address]
--- NOTE | ~2017-05-23 | OP ---
PATIENT NAME: JIMMY ROMANO MEDICAL RECORD: [id number] :65 LOCATION:D.M2 D.2126 ADMISSION DATE:05/23/17 SURGEON: MELISSA CAMERON MD DATE OF OPERATION: 05/27/2017 PROCEDURES: 1. PTCA stent RCA. 2. Left heart catheterization. 3. Selective coronary angiography. 4. Left ventriculogram. INDICATION: Angina and coronary artery disease. PROCEDURE IN DETAIL: After informed consent was obtained and after a detailed description of the risks, benefits as well as alternative therapies, the patient elected to proceed with angiogram and angioplasty. The right radial area was prepped and draped in normal sterile fashion. Right radial artery was cannulated via modified Seldinger technique with placement of 6-Romanian sheath. All catheters exchanged through this sheath. FINDINGS: The left ventriculogram was performed in standard 30-degree SWAN view, reveals good cardiac wall motion throughout all segments. Overall ejection fraction estimated 60%. SELECTIVE CORONARY ANGIOGRAPHY: 1. Left main is with no significant angiographic disease. 2. Left anterior descending has 80% to 90% stenosis in the proximal mid vessel. 3. Left circumflex has 90% stenosis in the mid vessel. 4. Right coronary artery has 90+ percent stenosis in the mid vessel. PTCA STENT OF THE RCA: The stent used was a 2.5 x 12 mm Edwardo stent taken to 21 atmospheres. Result was 0% residual stenosis. OVERALL IMPRESSION: Successful percutaneous transluminal coronary angioplasty stent of the right coronary artery going from 95% initial stenosis to 0% residual. PLAN: PTCA stent of the LAD and circumflex in the near future. TRANSINT:[id number] Voice Confirmation ID: [id number] DOCUMENT ID: [id number] MELISSA CAMERON MD at 1730 CC: [id number] DICTATION DATE: 06/14/17 1328 EVENT DECORATOR: 06/14/17 1342 DIS IN 05/29/17 [place] [id number] [place] [id number]
--- NOTE | ~2017-05-23 | CN ---
PATIENT NAME:JIMMY RAJPUT MEDICAL RECORD: [id number] : 65 LOCATION:D. D.2126 ADMIT DATE: 05/23/17 ACCOUNT: [id number] CONSULTING PHYSICIAN: MELISSA CAMERON MD REFERRING PHYSICIAN: RONNI HINES MD DATE OF CONSULTATION: 05/24/2017 DIAGNOSES: 1. Myocardial infarction. 2. Diabetic ketoacidosis. 3. Diabetes. 4. Hypertension. 5. Hyperlipidemia. HISTORY OF PRESENT ILLNESS: Ms. Rajput presents with diabetic ketoacidosis. She has no previous cardiac history. She has a troponin of 55. She has had no chest pain, no chest discomfort. PHYSICAL EXAMINATION: GENERAL APPEARANCE: Well-nourished, well-developed, appears stated age. Level of distress, comfortable. PSYCHIATRIC: Mental status, alert, normal affect. Orientation, oriented to time, place and person. EYES: Lids and conjunctiva, noninjected. No discharge, no pallor. ENT: Lips, teeth, gums, normal dentition. Oropharynx, no cyanosis, no pallor. NECK: Carotid arteries, bilateral normal upstroke, no bruits, no thrills. JUGULAR VEINS: No jugular venous pressure or distention. CERVICAL LYMPH NODES: Nontender, nonenlarged. THYROID: Not enlarged. Nontender. No nodules. LUNGS: Respiratory effort, unlabored. CHEST: Normal curvature. No thoracic deformity. No chest wall tenderness. Percussion, resonant. Auscultation, clear. No wheezes, no rales, no rhonchi. CARDIOVASCULAR: Precordial exam, nondisplaced. No heaves or pericardial thrills. Rate and rhythm, regular. Heart sounds, normal S1, normal S2. No S3, no gallop, no rub. Systolic murmur, not heard. Diastolic murmur, not heard. EXTREMITIES: No cyanosis, no edema. Peripheral pulses, full and equal in all extremities, except as noted. No bruits appreciated. ABDOMEN: Soft, nondistended. Normal aorta. No bruit. Nontender. No masses. Liver, nontender, no hepatomegaly. Spleen, nontender, no splenomegaly. MUSCULOSKELETAL: No joint tenderness. No joint swelling. No erythema. NEUROLOGICAL: Normal gait, normal strength, normal tone. SKIN: Warm and dry. OVERALL IMPRESSION: Myocardial infarction in conjunction with diabetic ketoacidosis. Most likely, she has underlying hemodynamically significant coronary artery disease. We will allow then to stabilize her from the standpoint of the diabetes and from a renal standpoint. Proceed with coronary angiography in the near future. TRANSINT:[id number] Voice Confirmation ID: [id number] DOCUMENT ID: [id number] CONSULT REPORT [id number] JIMMY RAJPUT JEFFREY MD at 0956 CC: [id number] DICTATION DATE: 05/24/17 142 HOMICIDE SQUAD LIEUTENANT: 05/24/17 1434 DIS IN 05/29/17 [facility] [address] [place] [address]
--- NOTE | ~2017-05-23 | EC ---
PATIENT:JIMMY ROMANO DATE OF SERVICE: 05/23/17 SEX: F MEDICAL RECORD: [id number] DATE OF : 65 LOCATION:D.M2 D.212 AGE OF PATIENT: 52 ADMISSION DATE: 05/23/17 REFERRING PHYSICIAN: INTERPRETING PHYSICIAN: MELISSA KENDRICK MD ECHOCARDIOGRAM REPORT ECHO CHARGES 4 ECHO COMPLETE Date: 05/25 CLINICAL DIAGNOSIS: MT HX HTN ECHOCARDIOGRAPHIC MEASUREMENTS (adult normal given) AC root (d.<3.7cm) 3.2 cm LV Septum d (<1.2 cm> 1.5 cm Valve Excursion 1.8 cm LV Septum (systole) 1.7 cm Left Atria (s.<4.0cm> 3.7 cm LVPW d(<1.2cm) 1.5 cm RV (d.<2.3cm) 3.3 cm LVPW (sytole) 2.0 cm LV diastole(<5.6CM) 3.3 cm MV E-F(>70mm/sec) cm LV systole 2.3 cm LVOT Diameter 1.8 cm MV exc.(>10mm) 1.5 cm Est.ejection fraction (50-75%) % DOPPLER: LVIT cm/sec A 110 cm/sec E 89.0 cm/sec LA cm/sec RVSP 23 mmHg LVOT 106 cm/sec AOP1/2T m/s Asc. Ao 147 cm/sec RVOT cm/sec RA cm/sec PA 162 cm/sec AV Gradient Peak 8.69 mmHg AV Mean 5.09 mmHg AV Area 1.8 cm MV Gradient Peak 8.62 mmHg MV Mean 3.83 mmHg MV Area cm COMMENTS: Director Of Nurses Registry: Bonnie MILLAN Patient Manager: 1 Dr. Kendrick TAPE# PACS Pericardial Effusion N DATE OF SERVICE: Echocardiogram FINDINGS: 1. Left ventricular chamber size is within normal limits. Left ventricular systolic function is normal. Overall ejection fraction estimated at 60%. 2. Left atrium, right atrium, and right ventricular chamber sizes are within normal limits. 3. Valvular structures have normal structure and motion. ECHOCARDIOGRAM REPORT [id number] JIMMY ROMANO 4. Doppler interrogation reveals only mild tricuspid regurgitation, no other valvular insufficiency or stenosis and pulmonary systolic pressure is normal at 23 mmHg. 5. No evidence of pericardial effusion or left ventricular thrombus. TRANSINT:[id number] Voice Confirmation ID: [id number] DOCUMENT ID: [id number] MELISSA KENDRICK MD at 0956 CC: [id number] DICTATION DATE: 05/26/17 1059 MACHINE OPERATOR HOP PICKER: 05/26/17 1515 DIS IN 05/29/17 [place] [id number] [place] [id number]
[2017-05-23 16:42] LABS: HEMATOCRIT 38.5 % (36.0-48.0); HEMOGLOBIN 13.1 g/dL (12-16); MCH 29.4 pg (26.0-34.0); MCV 86.3 fL (80.0-100.0); MEAN PLATELET VOLUME 10.9 fL (7.4-10.4); PLATELET COUNT 379 10x3/uL (130-400); RBC 4.46 10x6/uL (4.00-5.40); WBC 31.7 10x3/uL (4.8-10.8)
[2017-05-23 17:13] LABS: LYMPHOCYTES 7 % (15-50); NEUTROPHILS 93 % (40-80); PLATELET ESTIMATE NORMAL
[2017-05-23 17:14] LABS: ROULEAUX OCC
[2017-05-23 17:15] LABS: TEAR DROP CELLS OCC
[2017-05-23 17:43] LABS: APPEARANCE CLEAR (CLEAR); BILIRUBIN NEGATIVE (NEGATIVE); COLOR STRAW (YELLOW); GLUCOSE 1000 mg/dL (NEGATIVE); KETONE LARGE mg/dL (NEGATIVE); NITRITE NEGATIVE (NEGATIVE); PROTEIN NEGATIVE (NEGATIVE); UROBILINOGEN NORMAL (NORMAL)
[2017-05-23 17:45] LABS: BACTERIA FEW /hpf (NONE SEEN); EPITHELIAL CELLS 0-5 /hpf (0-5); WHITE CELLS - URINE 0-5 /hpf (0-5); YEAST <1+ /hpf (NONE SEEN)
[2017-05-23 18:13] LABS: ALBUMIN 3.5 g/dL (3.4-5.0); BILIRUBIN - TOTAL 0.9 mg/dL (0.2-1.3); MAGNESIUM - SERUM 1.7 mg/dL (1.8-2.4); PROTEIN - SERUM 7.3 g/dL (6.4-8.2)
[2017-05-23 18:17] LABS: ANION GAP 39.1 mmol/L (8-16)
[2017-05-23 18:18] LABS: CARBON DIOXIDE 8.1 mmol/L (21.0-32.0); POTASSIUM - SERUM 6.2 mmol/L (3.5-5.1)
[2017-05-23 19:49] VITALS: BP 140/57; BMI 38.8
[2017-05-23 20:00] VITALS: BP 140/78
[2017-05-23 21:00] VITALS: BP 138/78
[2017-05-23 22:00] VITALS: BP 142/74
[2017-05-23 22:05] LABS: CALCIUM 8.6 mg/dL (8.5-10.1); CREATININE - SERUM 2.2 mg/dL (0.6-1.3); POTASSIUM - SERUM 5.4 mmol/L (3.5-5.1)
[2017-05-23 22:07] LABS: ANION GAP 37.9 mmol/L (8-16); CARBON DIOXIDE 6.5 mmol/L (21.0-32.0)
[2017-05-23 23:00] VITALS: BP 144/78
[2017-05-24] VITALS (22 sets, daily range): BP systolic 120–170; BP diastolic 61–90; Ht 162.6 cm; Wt 106.0 kg
[2017-05-24 03:03] LABS: ANION GAP 27.2 mmol/L (8-16); CALCIUM 8.9 mg/dL (8.5-10.1); CREATININE - SERUM 2.2 mg/dL (0.6-1.3); MAGNESIUM - SERUM 1.7 mg/dL (1.8-2.4); POTASSIUM - SERUM 4.9 mmol/L (3.5-5.1)
[2017-05-24 03:04] LABS: CARBON DIOXIDE 16.7 mmol/L (21.0-32.0)
[2017-05-24 07:28] LABS: BASOPHILS 0 % (0-2); EOSINOPHILS 0.1 % (0-7); HEMATOCRIT 37.5 % (36.0-48.0); HEMOGLOBIN 13.1 g/dL (12-16); IMMATURE GRANULOCYTES 0.4 % (0-5); MCHC 34.9 g/dL (31.0-37.0); MEAN PLATELET VOLUME 10.5 fL (7.4-10.4); MONOCYTES 9.1 % (2-11); NEUTROPHILS 81.4 % (40-80); PLATELET COUNT 321 10x3/uL (130-400); RBC 4.52 10x6/uL (4.00-5.40); RDW 12.9 % (11.5-14.5); WBC 21.4 10x3/uL (4.8-10.8)
[2017-05-24 07:31] LABS: CALCIUM 9.1 mg/dL (8.5-10.1); CARBON DIOXIDE 20.1 mmol/L (21.0-32.0); CREATININE - SERUM 1.9 mg/dL (0.6-1.3); MAGNESIUM - SERUM 1.6 mg/dL (1.8-2.4)
[2017-05-24 07:35] LABS: POTASSIUM - SERUM 4.1 mmol/L (3.5-5.1)
[2017-05-24 11:29] LABS: KETONE - SERUM SMALL mg/dL (NEGATIVE)
[2017-05-24 12:53] LABS: CALCIUM 9.1 mg/dL (8.5-10.1); CARBON DIOXIDE 19.3 mmol/L (21.0-32.0); CHLORIDE - SERUM 94 mmol/L (98-107); CKMB 71.3 U/L (0.0-3.6); CREATINE KINASE 694 UL (21-215); CREATININE - SERUM 1.6 mg/dL (0.6-1.3); MAGNESIUM - SERUM 1.6 mg/dL (1.8-2.4); POTASSIUM - SERUM 4.2 mmol/L (3.5-5.1); SODIUM 132 mmol/L (136-145); UREA NITROGEN 42 mg/dL (7-18); eGFR NON AFRICAN AMERICAN 36 mL/min (90-120)
[2017-05-24 12:56] LABS: CALC OSMOLALITY 275 mosm/kg (275-300); GLUCOSE 92 mg/dL (74-106); TROPONIN-I 33.549 ng/mL (0.000-0.060)
[2017-05-24 16:24] LABS: KETONE - SERUM SMALL mg/dL (NEGATIVE)
[2017-05-24 17:12] LABS: CALC OSMOLALITY 278 mosm/kg (275-300); CARBON DIOXIDE 19.8 mmol/L (21.0-32.0); CHLORIDE - SERUM 95 mmol/L (98-107); CKMB 67.3 U/L (0.0-3.6); CREATINE KINASE 635 UL (21-215); CREATININE - SERUM 1.7 mg/dL (0.6-1.3); GLUCOSE 196 mg/dL (74-106); MAGNESIUM - SERUM 1.6 mg/dL (1.8-2.4); POTASSIUM - SERUM 4.4 mmol/L (3.5-5.1); SODIUM 131 mmol/L (136-145); UREA NITROGEN 44 mg/dL (7-18); eGFR NON AFRICAN AMERICAN 33 mL/min (90-120)
[2017-05-24 17:19] LABS: TROPONIN-I 29.141 ng/mL (0.000-0.060)
[2017-05-24 22:27] LABS: KETONE - SERUM NEGATIVE (NEGATIVE)
[2017-05-24 22:52] LABS: CALC OSMOLALITY 274 mosm/kg (275-300); CALCIUM 9.5 mg/dL (8.5-10.1); CARBON DIOXIDE 21.7 mmol/L (21.0-32.0); CHLORIDE - SERUM 102 mmol/L (98-107); CKMB 23.4 U/L (0.0-3.6); CREATINE KINASE 288 UL (21-215); CREATININE - SERUM 1.6 mg/dL (0.6-1.3); GLUCOSE 165 mg/dL (74-106); MAGNESIUM - SERUM 1.7 mg/dL (1.8-2.4); PHOSPHOROUS 2.5 mg/dL (2.5-4.9); POTASSIUM - SERUM 3.6 mmol/L (3.5-5.1); SODIUM 131 mmol/L (136-145); TROPONIN-I 13.046 ng/mL (0.000-0.060); UREA NITROGEN 34 mg/dL (7-18); eGFR NON AFRICAN AMERICAN 36 mL/min (90-120)
[2017-05-25] VITALS (24 sets, daily range): BP systolic 127–205; BP diastolic 51–102
[2017-05-25 01:02] LABS: CALC OSMOLALITY 280 mosm/kg (275-300); CALCIUM 9.1 mg/dL (8.5-10.1); CARBON DIOXIDE 24.6 mmol/L (21.0-32.0); CHLORIDE - SERUM 100 mmol/L (98-107); CREATININE - SERUM 1.4 mg/dL (0.6-1.3); GLUCOSE 155 mg/dL (74-106); MAGNESIUM - SERUM 1.7 mg/dL (1.8-2.4); PHOSPHOROUS 2.1 mg/dL (2.5-4.9); POTASSIUM - SERUM 3.5 mmol/L (3.5-5.1); SODIUM 136 mmol/L (136-145); UREA NITROGEN 29 mg/dL (7-18); eGFR NON AFRICAN AMERICAN 42 mL/min (90-120)
[2017-05-25 01:11] LABS: KETONE - SERUM NEGATIVE (NEGATIVE)
[2017-05-25 04:15] LABS: KETONE - SERUM NEGATIVE (NEGATIVE)
[2017-05-25 04:28] LABS: CALC OSMOLALITY 274 mosm/kg (275-300); CALCIUM 9.2 mg/dL (8.5-10.1); CHLORIDE - SERUM 103 mmol/L (98-107); CREATININE - SERUM 1.2 mg/dL (0.6-1.3); GLUCOSE 132 mg/dL (74-106); MAGNESIUM - SERUM 1.9 mg/dL (1.8-2.4); PHOSPHOROUS 2.5 mg/dL (2.5-4.9); POTASSIUM - SERUM 3.8 mmol/L (3.5-5.1); SODIUM 134 mmol/L (136-145); UREA NITROGEN 26 mg/dL (7-18); eGFR NON AFRICAN AMERICAN 50 mL/min (90-120)
[2017-05-25 09:47] LABS: KETONE - SERUM NEGATIVE (NEGATIVE)
[2017-05-25 09:54] LABS: CALC OSMOLALITY 276 mosm/kg (275-300); CALCIUM 9.3 mg/dL (8.5-10.1); CARBON DIOXIDE 21.9 mmol/L (21.0-32.0); CHLORIDE - SERUM 103 mmol/L (98-107); CREATININE - SERUM 1.2 mg/dL (0.6-1.3); GLUCOSE 182 mg/dL (74-106); MAGNESIUM - SERUM 1.7 mg/dL (1.8-2.4); PHOSPHOROUS 2.9 mg/dL (2.5-4.9); POTASSIUM - SERUM 4.2 mmol/L (3.5-5.1); SODIUM 134 mmol/L (136-145); UREA NITROGEN 23 mg/dL (7-18); eGFR NON AFRICAN AMERICAN 50 mL/min (90-120)
[2017-05-25 13:25] LABS: CALC OSMOLALITY 276 mosm/kg (275-300); CALCIUM 9.2 mg/dL (8.5-10.1); CARBON DIOXIDE 22.1 mmol/L (21.0-32.0); CHLORIDE - SERUM 103 mmol/L (98-107); CREATININE - SERUM 1.1 mg/dL (0.6-1.3); MAGNESIUM - SERUM 1.6 mg/dL (1.8-2.4); POTASSIUM - SERUM 3.9 mmol/L (3.5-5.1); SODIUM 136 mmol/L (136-145); UREA NITROGEN 20 mg/dL (7-18); eGFR NON AFRICAN AMERICAN 55 mL/min (90-120)
[2017-05-25 13:28] LABS: GLUCOSE 126 mg/dL (74-106); PHOSPHOROUS 1.8 mg/dL (2.5-4.9)
[2017-05-25 13:29] LABS: KETONE - SERUM NEGATIVE (NEGATIVE)
[2017-05-25 20:03] LABS: KETONE - SERUM NEGATIVE (NEGATIVE)
[2017-05-25 20:15] LABS: CALCIUM 9.1 mg/dL (8.5-10.1); CARBON DIOXIDE 18.8 mmol/L (21.0-32.0); CHLORIDE - SERUM 99 mmol/L (98-107); MAGNESIUM - SERUM 1.7 mg/dL (1.8-2.4); SODIUM 130 mmol/L (136-145); UREA NITROGEN 18 mg/dL (7-18); eGFR NON AFRICAN AMERICAN 62 mL/min (90-120)
[2017-05-25 20:16] LABS: CALC OSMOLALITY 275 mosm/kg (275-300); GLUCOSE 338 mg/dL (74-106); PHOSPHOROUS 2.7 mg/dL (2.5-4.9); POTASSIUM - SERUM 4.9 mmol/L (3.5-5.1)
[2017-05-25 23:30] LABS: KETONE - SERUM NEGATIVE (NEGATIVE)
[2017-05-25 23:34] LABS: CALC OSMOLALITY 280 mosm/kg (275-300); CALCIUM 9.5 mg/dL (8.5-10.1); CARBON DIOXIDE 23.8 mmol/L (21.0-32.0); CHLORIDE - SERUM 99 mmol/L (98-107); CREATININE - SERUM 1.1 mg/dL (0.6-1.3); GLUCOSE 326 mg/dL (74-106); MAGNESIUM - SERUM 1.6 mg/dL (1.8-2.4); PHOSPHOROUS 1.9 mg/dL (2.5-4.9); SODIUM 133 mmol/L (136-145); UREA NITROGEN 17 mg/dL (7-18); eGFR NON AFRICAN AMERICAN 55 mL/min (90-120)
[2017-05-26] VITALS (12 sets, daily range): BP systolic 153–178; BP diastolic 73–107
[2017-05-26 05:38] LABS: CALC OSMOLALITY 283 mosm/kg (275-300); CALCIUM 9.1 mg/dL (8.5-10.1); CARBON DIOXIDE 21.5 mmol/L (21.0-32.0); CHLORIDE - SERUM 103 mmol/L (98-107); GLUCOSE 298 mg/dL (74-106); SODIUM 136 mmol/L (136-145); UREA NITROGEN 15 mg/dL (7-18)
[2017-05-26 05:40] LABS: CREATININE - SERUM 0.8 mg/dL (0.6-1.3); POTASSIUM - SERUM 4.3 mmol/L (3.5-5.1); eGFR NON AFRICAN AMERICAN 80 mL/min (90-120)
[2017-05-27] VITALS (13 sets, daily range): BP systolic 149–189; BP diastolic 87–98
[2017-05-27 03:51] LABS: BASOPHILS 0.3 % (0-2); EOSINOPHILS 4.6 % (0-7); HEMATOCRIT 39.5 % (36.0-48.0); HEMOGLOBIN 13.3 g/dL (12-16); IMMATURE GRANULOCYTES 0.3 % (0-5); LYMPHOCYTES 33.3 % (15-50); MCH 28.9 pg (26.0-34.0); MCHC 33.7 g/dL (31.0-37.0); MCV 85.9 fL (80.0-100.0); MEAN PLATELET VOLUME 10.6 fL (7.4-10.4); MONOCYTES 6.6 % (2-11); NEUTROPHILS 54.9 % (40-80); PLATELET COUNT 273 10x3/uL (130-400); RDW 12.8 % (11.5-14.5); WBC 10.4 10x3/uL (4.8-10.8)
[2017-05-27 04:06] LABS: ANION GAP 15.7 mmol/L (8-16); BILIRUBIN - TOTAL 0.49 mg/dL (0.2-1.3); CALCIUM 9.2 mg/dL (8.5-10.1); CARBON DIOXIDE 23.7 mmol/L (21.0-32.0)
[2017-05-27 04:08] LABS: POTASSIUM - SERUM 3.4 mmol/L (3.5-5.1)
[2017-05-28] VITALS (13 sets, daily range): BP systolic 132–201; BP diastolic 60–91
[2017-05-28 05:35] LABS: ALBUMIN 2.8 g/dL (3.4-5.0); ANION GAP 19.6 mmol/L (8-16); BILIRUBIN - TOTAL 0.54 mg/dL (0.2-1.3); CALCIUM 8.6 mg/dL (8.5-10.1); CARBON DIOXIDE 18.8 mmol/L (21.0-32.0); CREATININE - SERUM 1.2 mg/dL (0.6-1.3); PROTEIN - SERUM 6.4 g/dL (6.4-8.2); THYROID STIMULATING HORMONE 1.64 uIU/mL (0.36-3.74)
[2017-05-28 05:38] LABS: POTASSIUM - SERUM 5.4 mmol/L (3.5-5.1)
[2017-05-28 06:54] LABS: BASOPHILS 0.4 % (0-2); EOSINOPHILS 3.3 % (0-7); HEMOGLOBIN 11.8 g/dL (12-16); IMMATURE GRANULOCYTES 0.9 % (0-5); LYMPHOCYTES 25.8 % (15-50); MCH 28.4 pg (26.0-34.0); MCHC 33.7 g/dL (31.0-37.0); MCV 84.3 fL (80.0-100.0); MEAN PLATELET VOLUME 10.9 fL (7.4-10.4); MONOCYTES 7.5 % (2-11); NEUTROPHILS 62.1 % (40-80); PLATELET COUNT 259 10x3/uL (130-400); RBC 4.15 10x6/uL (4.00-5.40); RDW 12.6 % (11.5-14.5); WBC 11.2 10x3/uL (4.8-10.8)
[2017-05-29] VITALS: BP 172/73
[2017-05-29 04:00] VITALS: BP 173/80
[2017-05-29 06:13] LABS: ALKALINE PHOSPHATASE 120 U/L (46-116); BILIRUBIN - TOTAL 0.24 mg/dL (0.2-1.3); CALC OSMOLALITY 268 mosm/kg (275-300); CALCIUM 9.1 mg/dL (8.5-10.1); CARBON DIOXIDE 23.3 mmol/L (21.0-32.0); CHLORIDE - SERUM 99 mmol/L (98-107); CREATININE - SERUM 0.8 mg/dL (0.6-1.3); GLUCOSE 76 mg/dL (74-106); POTASSIUM - SERUM 3.6 mmol/L (3.5-5.1); SODIUM 135 mmol/L (136-145); UREA NITROGEN 13 mg/dL (7-18); eGFR NON AFRICAN AMERICAN 80 mL/min (90-120)
[2017-05-29 06:14] LABS: ALT (SGPT) 26 U/L (10-68)
[2017-05-29 06:27] LABS: BASOPHILS 0.2 % (0-2); EOSINOPHILS 3.2 % (0-7); HEMOGLOBIN 12.7 g/dL (12-16); IMMATURE GRANULOCYTES 0.6 % (0-5); LYMPHOCYTES 22.8 % (15-50); MCH 28.8 pg (26.0-34.0); MCHC 34.3 g/dL (31.0-37.0); MCV 83.9 fL (80.0-100.0); MEAN PLATELET VOLUME 10.5 fL (7.4-10.4); MONOCYTES 7.8 % (2-11); NEUTROPHILS 65.4 % (40-80); PLATELET COUNT 293 10x3/uL (130-400); RBC 4.41 10x6/uL (4.00-5.40); RDW 12.7 % (11.5-14.5); WBC 13.2 10x3/uL (4.8-10.8)
[2017-05-29 08:29] VITALS: BP 173/80
[2017-05-29] MEDS ORDERED: PLAVIX75 MG PO (13:05)
[2017-05-29] MEDS ORDERED: COREG12.5 MG PO (13:05)
[2017-05-29] MEDS ORDERED: LISINOPRIL10 MG PO (13:05)
[2017-05-29] MEDS ORDERED: ASPIRIN81 MG PO (13:09)
== END 2017-05-29 15:36 | disposition home or self-care (01) | DRG 246 ==
LOC: D.ER 15:48 → D.M2 17:55 → D.ICU 17:55 → D.EDHOLD 17:55 → D.ICU 19:41 → D.M2 05-27 15:50
PROVIDERS: Emergency Medicine; Internal Medicine Interventional Cardiology; Internal Medicine Nephrology
PROC: B2111ZZ Fluoroscopy of Multiple Coronary Arteries using Low Osmolar Contrast (ICD-10-PCS; 2017-05-28)
PROC: 027135Z Dilation of Coronary Artery, Two Arteries with Two Drug-eluting Intraluminal Devices, Percutaneous Approach (ICD-10-PCS; principal; 2017-05-28 11:30)
DX: I21.4 Non-ST elevation (NSTEMI) myocardial infarction (principal); E11.10 Type 2 diabetes mellitus with ketoacidosis without coma; G92 Toxic encephalopathy; N17.9 Acute kidney failure, unspecified; I10 Essential (primary) hypertension; E66.01 Morbid (severe) obesity due to excess calories; D72.829 Elevated white blood cell count, unspecified; R41.82 Altered mental status, unspecified; E83.42 Hypomagnesemia; J44.9 Chronic obstructive pulmonary disease, unspecified; Z68.38 Body mass index [BMI] 38.0-38.9, adult; E78.5 Hyperlipidemia, unspecified; I25.10 Atherosclerotic heart disease of native coronary artery without angina pectoris

== ENCOUNTER 2017-08-22 20:57 | Emergency (ER) | payer MEDICAID ==
[~2017-08-22] VITALS: Ht 162.6 cm; Wt 103.2 kg
[~2017-08-22 20:57] MED LIST changes: +ASPIRIN81 MG PO; +LISINOPRIL10 MG PO; +PLAVIX75 MG PO
[2017-08-22 21:10] VITALS: Ht 162.6 cm; Wt 103.2 kg
[2017-08-22] MEDS ORDERED: LANTUS INSULIN10 ML SQ (21:13)
[2017-08-22] MEDS ORDERED: HUMALOG 30100 UNITS/ SC (22:20)
[2017-08-22 22:35] LABS: BASOPHILS 0.3 % (0-2); EOSINOPHILS 3.5 % (0-7); HEMATOCRIT 42.9 % (36.0-48.0); HEMOGLOBIN 14.3 g/dL (12-16); IMMATURE GRANULOCYTES 0.3 % (0-5); LYMPHOCYTES 27.7 % (15-50); MCH 29.1 pg (26.0-34.0); MCHC 33.3 g/dL (31.0-37.0); MCV 87.4 fL (80.0-100.0); MEAN PLATELET VOLUME 11.9 fL (7.4-10.4); MONOCYTES 6.4 % (2-11); NEUTROPHILS 61.8 % (40-80); PLATELET COUNT 306 10x3/uL (130-400); RBC 4.91 10x6/uL (4.00-5.40); RDW 13.5 % (11.5-14.5); WBC 11.4 10x3/uL (4.8-10.8)
[2017-08-22 22:54] LABS: KETONE - SERUM NEGATIVE (NEGATIVE)
[2017-08-22 23:03] LABS: ALBUMIN 3.5 g/dL (3.4-5.0); ALKALINE PHOSPHATASE 197 U/L (46-116); ALT (SGPT) 34 U/L (10-68); CALC OSMOLALITY 281 mosm/kg (275-300); CALCIUM 9.4 mg/dL (8.5-10.1); CARBON DIOXIDE 26.5 mmol/L (21.0-32.0); CHLORIDE - SERUM 97 mmol/L (98-107); CREATININE - SERUM 1.1 mg/dL (0.6-1.3); PROTEIN - SERUM 7.5 g/dL (6.4-8.2); SODIUM 130 mmol/L (136-145); UREA NITROGEN 13 mg/dL (7-18); eGFR NON AFRICAN AMERICAN 55 mL/min (90-120)
[2017-08-22 23:12] LABS: GLUCOSE 468 mg/dL (74-106)
[2017-08-22 23:48] VITALS: BP 145/69
== END 2017-08-22 23:48 | disposition home or self-care (01) ==
LOC: D.ER 20:57
PROVIDERS: Family Medicine
DX: E11.9 Type 2 diabetes mellitus without complications (principal); Z79.4 Long term (current) use of insulin; I10 Essential (primary) hypertension; J44.9 Chronic obstructive pulmonary disease, unspecified

== ENCOUNTER → 2017-12-25 08:36 | Outpatient (CLI) | payer MEDICAID ==
[2017-08-22 21:10] VITALS: BMI 39.0
[~2017-12-25 08:36] MED LIST changes: +LANTUS INSULIN10 ML SQ
== END | disposition home or self-care (01) ==
LOC: D.RAD 08:36
DX: R13.19 Other dysphagia (principal)

== ENCOUNTER 2018-05-02 19:00 | Outpatient (CLI) | payer MEDICAID ==
[2017-08-22 21:10] VITALS: BMI 39.0
== END 2018-05-02 23:59 | disposition home or self-care (01) ==
LOC: D.MAMMO 19:00
PROVIDERS: ATTEND Nurse Practitioner Family
DX: Z12.31 Encounter for screening mammogram for malignant neoplasm of breast (principal)

== ENCOUNTER 2018-07-29 20:43 | Emergency (ER) | payer MEDICAID ==
[~2018-07-29] VITALS: Ht 162.6 cm; Wt 92.7 kg
[2018-07-29 21:31] VITALS: Ht 162.6 cm; Wt 92.7 kg
[2018-07-29 21:58] LABS: BASOPHILS 0.3 % (0-2); EOSINOPHILS 1.5 % (0-7); HEMATOCRIT 46.9 % (36.0-48.0); HEMOGLOBIN 16.1 g/dL (12-16); IMMATURE GRANULOCYTES 0.2 % (0-5); LYMPHOCYTES 35.4 % (15-50); MCHC 34.3 g/dL (31.0-37.0); MCV 84.5 fL (80.0-100.0); MONOCYTES 6.8 % (2-11); NEUTROPHILS 55.8 % (40-80); PLATELET COUNT 247 10x3/uL (130-400); RBC 5.55 10x6/uL (4.00-5.40); RDW 13.6 % (11.5-14.5); WBC 10.8 10x3/uL (4.8-10.8)
[2018-07-29 22:06] LABS: KETONE - SERUM NEGATIVE (NEGATIVE)
[2018-07-29 22:12] LABS: ALBUMIN 3.5 g/dL (3.4-5.0); ALKALINE PHOSPHATASE 129 U/L (46-116); ALT (SGPT) 20 U/L (10-68); BILIRUBIN - TOTAL 0.45 mg/dL (0.2-1.3); CALC OSMOLALITY 277 mosm/kg (275-300); CALCIUM 9.9 mg/dL (8.5-10.1); CARBON DIOXIDE 27.8 mmol/L (21.0-32.0); CHLORIDE - SERUM 102 mmol/L (98-107); MAGNESIUM - SERUM 1.7 mg/dL (1.8-2.4); POTASSIUM - SERUM 3.9 mmol/L (3.5-5.1); PROTEIN - SERUM 7.6 g/dL (6.4-8.2); SODIUM 139 mmol/L (136-145); UREA NITROGEN 9 mg/dL (7-18); eGFR NON AFRICAN AMERICAN 61 mL/min (90-120)
[2018-07-29 22:17] LABS: GLUCOSE 110 mg/dL (74-106)
[2018-07-29 23:01] VITALS: BP 159/90
== END 2018-07-29 23:02 | disposition home or self-care (01) ==
LOC: D.ER 20:43
PROVIDERS: Family Medicine
DX: E11.649 Type 2 diabetes mellitus with hypoglycemia without coma (principal); Z79.4 Long term (current) use of insulin

== ENCOUNTER 2018-11-30 11:53 | Emergency (ER) | payer MEDICAID ==
[~2018-11-30] VITALS: Ht 162.6 cm; Wt 88.6 kg
[2018-11-30 11:57] VITALS: Ht 162.6 cm; Wt 88.6 kg
[2018-11-30] MEDS ORDERED: CLEOCIN HCL300 MG PO (12:57)
[2018-11-30 13:03] LABS: BASOPHILS 0.5 % (0-2); EOSINOPHILS 3.5 % (0-7); HEMATOCRIT 46.8 % (36.0-48.0); HEMOGLOBIN 15.6 g/dL (12-16); IMMATURE GRANULOCYTES 0.8 % (0-5); LYMPHOCYTES 39.5 % (15-50); MCH 29.3 pg (26.0-34.0); MCHC 33.3 g/dL (31.0-37.0); MEAN PLATELET VOLUME 11.3 fL (7.4-10.4); MONOCYTES 7.4 % (2-11); NEUTROPHILS 48.3 % (40-80); RBC 5.32 10x6/uL (4.00-5.40); RDW 12.7 % (11.5-14.5); WBC 9.9 10x3/uL (4.8-10.8)
[2018-11-30 13:04] LABS: PLATELET COUNT 165 10x3/uL (130-400)
[2018-11-30 13:10] LABS: ANION GAP 9.3 mmol/L (8-16); CALCIUM 9.9 mg/dL (8.5-10.1); CARBON DIOXIDE 26.4 mmol/L (21.0-32.0); POTASSIUM - SERUM 4.7 mmol/L (3.5-5.1)
[2018-11-30 13:16] LABS: BILIRUBIN - TOTAL 0.29 mg/dL (0.2-1.3)
[2018-11-30 13:35] VITALS: BP 132/78
== END 2018-11-30 13:36 | disposition home or self-care (01) ==
LOC: D.ER 11:53
PROVIDERS: Emergency Medicine
DX: L03.012 Cellulitis of left finger (principal); E11.9 Type 2 diabetes mellitus without complications; I10 Essential (primary) hypertension; J44.9 Chronic obstructive pulmonary disease, unspecified; K21.9 Gastro-esophageal reflux disease without esophagitis; F17.200 Nicotine dependence, unspecified, uncomplicated

== ENCOUNTER → 2019-04-27 16:43 | Outpatient (CLI) | payer MEDICAID ==
[2018-11-30 11:57] VITALS: BMI 33.5
[~2019-04-27 16:43] MED LIST changes: +CLEOCIN HCL300 MG PO
== END | disposition home or self-care (01) ==
LOC: D.LABREF 16:43
PROVIDERS: ATTEND Internal Medicine Pulmonary Disease
DX: J44.9 Chronic obstructive pulmonary disease, unspecified (principal)

== ENCOUNTER → 2019-07-03 08:40 | Outpatient (CLI) | payer MEDICAID ==
[2018-11-30 11:57] VITALS: BMI 33.5
== END | disposition home or self-care (01) ==
LOC: D.HCCECHO 06-25 10:00 → D.HCCARDIO 06-25 11:30 → D.HCCECHO 08:40
PROVIDERS: ATTEND Internal Medicine Cardiovascular Disease
DX: I25.10 Atherosclerotic heart disease of native coronary artery without angina pectoris (principal)